=== PATIENT | male | born 1945 | race Caucasian/White ===

== ENCOUNTER 2016-12-05 11:55 | Day surgery (SDC) | payer MEDICARE, BC ==
[~2016-12-05 11:55] MED LIST: Acetaminophen TAB* 325 MG PO PRN; Buffered Lidocaine 0.9% SYRIN* 5 ML/SYR SYRINGE INTRADERM ONE
[2016-12-05] MEDS ORDERED: Midazolam* 1 MG/ML 2 ML VIAL (2 MG) ONE (14:23)
--- NOTE | 2016-12-05 16:08 | OP ---
DATE OF OPERATION: 12/05/2016 - [facility] DATE OF : 1945. SURGEON: Sedrick Perkins M.D. PREOPERATIVE DIAGNOSIS: Cataract right eye. POSTOPERATIVE DIAGNOSIS: Cataract right eye. OPERATIVE PROCEDURE: Phacoemulsification right eye with IOL. DESCRIPTION OF PROCEDURE: The patient was brought to the operating room after being given 1/2% Alcaine with epinephrine drops in the preoperative area. The eye was prepped and draped in the usual sterile fashion. Sterile drape and eyelid speculum were placed. Again, topical 1/2% Alcaine with epinephrine was given. A paracentesis incision was made at the 9 o'clock position with the No.75 blade. Clear cornea incision 2.2 x 2.2-mm was created at the 12 o'clock position starting at the anterior limbus using the 2.2-mm keratome. The anterior chamber was irrigated with 0.4 mL of 1% non-preservative intracameral lidocaine and filled with DisCoVisc. A capsulorrhexis was completed using the cystotome and the Utrata forceps. Hydrodissection was performed with balanced salt solution. The lens nucleus was removed with the Phacoemulsification handpiece without incident. Cortex was removed with the irrigation-aspiration handpiece. The capsular bag was re-inflated using DisCoVisc and an [id number] 16 implant was inserted with the shooter, oriented to the 120 degree meridian. Horizontal reference sanchez made with the patient in a seated position in the preoperative area. The irrigation-aspiration handpiece was used to remove all residual DisCoVisc. The eye was refilled with balanced salt solution and the wound checked and found to be watertight. Topical Maxitrol drops were given. [id number]/[facility] #: [id number] [facility]ENTER[facility]al[facility]
[2016-12-05 16:42] VITALS: BP 143/61
[2016-12-05] MEDS ORDERED: Ketorolac 0.5% OPHTH (NF) 0.5 % 5 ML BTL ONE (17:14)
[2016-12-05] MEDS ORDERED: Proparacaine 0.5% OPHTH.SOL* 15 ML BTL ONE (17:15)
[2016-12-05] MEDS ORDERED: Povidone Iodine 5% OPTH* 30 ML BTL ONE (17:15)
[2016-12-05] MEDS ORDERED: Lidocaine 1% MPF* 2 ML VIAL ONE (17:15)
[2016-12-05] MEDS ORDERED: Neomycin/Polymy/Dex OPTH.SUSP* MAXITROL 0.1% 5 ML ONE (17:15)
[2016-12-05] MEDS ORDERED: acetaZOLAMIDE TAB* 250 MG ONE (17:15)
[2016-12-05] MEDS ORDERED: Cyclopentolate 1% OPTH.SOL* 2 ML BTL ONE (17:15)
[2016-12-05] MEDS ORDERED: Phenylephrine 2.5% OPTH.SOL* 2 ML BTL ONE (17:15)
== END 2016-12-05 16:24 | disposition home or self-care (01) ==
LOC: OREAST 11:55
PROVIDERS: ATTEND Specialist
DX: H25.811 Combined forms of age-related cataract, right eye (principal); E11.3293 Type 2 diabetes mellitus with mild nonproliferative diabetic retinopathy without macular edema, bilateral; H04.123 Dry eye syndrome of bilateral lacrimal glands; I10 Essential (primary) hypertension; Z87.891 Personal history of nicotine dependence; Z79.84 Long term (current) use of oral hypoglycemic drugs; Z79.4 Long term (current) use of insulin
CPT/HCPCS: 93005; A9270-GY; J2250; V2787

== ENCOUNTER 2016-12-12 06:51 | Day surgery (SDC) | payer MEDICARE, BC ==
[2016-12-12] MEDS ORDERED: Lidocaine 1% MPF* 2 ML VIAL ONE (08:00)
[2016-12-12] MEDS ORDERED: acetaZOLAMIDE TAB* 250 MG ONE (08:00)
[2016-12-12] MEDS ORDERED: Cyclopentolate 1% OPTH.SOL* 2 ML BTL ONE (08:00)
[2016-12-12] MEDS ORDERED: Neomycin/Polymy/Dex OPTH.SUSP* MAXITROL 0.1% 5 ML ONE (08:00)
[2016-12-12] MEDS ORDERED: Proparacaine 0.5% OPHTH.SOL* 15 ML BTL ONE (08:00)
[2016-12-12] MEDS ORDERED: Phenylephrine 2.5% OPTH.SOL* 2 ML BTL ONE (08:00)
[2016-12-12] MEDS ORDERED: Buffered Lidocaine 0.9% SYRIN* 5 ML/SYR SYRINGE ONE (08:00)
[2016-12-12] MEDS ORDERED: Povidone Iodine 5% OPTH* 30 ML BTL ONE (08:00)
[2016-12-12] MEDS ORDERED: Ketorolac 0.5% OPHTH (NF) 0.5 % 5 ML BTL ONE (08:01)
[2016-12-12] MEDS ORDERED: Midazolam* 1 MG/ML 2 ML VIAL (2 MG) ONE (08:07)
[2016-12-12 09:17] VITALS: BP 128/45
--- NOTE | 2016-12-12 09:22 | OP ---
DATE OF OPERATION: 12/12/2016 - [facility] DATE OF : 1945. SURGEON: Sedrick Perkins M.D. PREOPERATIVE DIAGNOSIS: Cataract left eye. POSTOPERATIVE DIAGNOSIS: Cataract left eye. OPERATIVE PROCEDURE: Phacoemulsification left eye with IOL. DESCRIPTION OF PROCEDURE: The patient was brought to the operating room after being given 1/2% Alcaine with epinephrine drops in the preoperative area. The eye was prepped and draped in the usual sterile fashion. Sterile drape and eyelid speculum were placed. Again, topical 1/2% Alcaine with epinephrine was given. A paracentesis incision was made at the 3 o'clock position with the No.75 blade. Clear cornea incision 2.2 x 2.2-mm was created at the 6 o'clock position starting at the anterior limbus using the 2.2-mm keratome. The anterior chamber was irrigated with 0.4 mL of 1% non-preservative intracameral lidocaine and filled with DisCoVisc. A capsulorrhexis was completed using the cystotome and the Utrata forceps. Hydrodissection was performed with balanced salt solution. The lens nucleus was removed with the Phacoemulsification handpiece without incident. Cortex was removed with the irrigation-aspiration handpiece. The capsular bag was re-inflated using DisCoVisc and an [id number] 15.5 implant was inserted with the shooter, oriented to the 30 degree meridian. Horizontal reference sanchez made with the patient in the seated position in the preoperative area. The irrigation-aspiration handpiece was used to remove all residual DisCoVisc. The eye was refilled with balanced salt solution and the wound checked and found to be watertight. Topical Maxitrol drops were given. [id number]/[facility] #: [id number] [facility]
== END 2016-12-12 09:25 | disposition home or self-care (01) ==
LOC: OREAST 06:51
PROVIDERS: ATTEND Specialist
DX: H25.812 Combined forms of age-related cataract, left eye (principal); E11.3293 Type 2 diabetes mellitus with mild nonproliferative diabetic retinopathy without macular edema, bilateral; H04.123 Dry eye syndrome of bilateral lacrimal glands; I10 Essential (primary) hypertension; I49.8 Other specified cardiac arrhythmias
CPT/HCPCS: A9270-GY; J2250

== ENCOUNTER 2018-07-02 11:59 | Inpatient (IN) | payer MEDICARE, BC ==
--- NOTE | 2018-07-01 13:23 | HP ---
AMENDED REPORT NOW INCLUDES DESIGNATED COSIGNER CC: Dr. Robin Souza; Dr. Enoc Munson * DATE OF ADMISSION: 07/02/2018. This patient is scheduled for AA admission by Dr. Mak. DATE OF PREOPERATIVE HISTORY AND PHYSICAL EXAMINATION: Sunday, July 01, 2018. ATTENDING SURGEON: Dr. Sergo Mak * (dictated by Fe Cespedes NP). CHIEF COMPLAINT: Colon cancer. HISTORY OF PRESENT ILLNESS: The patient is a 72-year-old male referred to Dr. Mak for newly diagnosed metastatic colon carcinoma. The patient had left lower quadrant abdominal pain and change in bowel habits with pencil-thin stools and constipation. A CAT scan of the abdomen and pelvis revealed an abnormal sigmoid colon suggestive of a mass. Image guided liver biopsy showed findings consistent with metastatic colon carcinoma. The patient met with Dr. Munson and he was referred to Dr. Nunez for flexible sigmoidoscopy on 06/20. The sigmoidoscopy revealed a circumferential mass in the descending colon. Dr. Primo Mcmanus was unable to advance the scope past the mass and she advised that the mass will begin to cause increasing obstructive symptoms. A tattoo was placed several folds distal to the mass for localization. The patient has a poor appetite and has lost approximately 40 to 50 pounds. He is feeling fatigued. He denies any fever or chills and denies any vomiting. He is trying to drink Boost three times a day. Dr. Mak examined the patient and discussed the findings with him, and has recommended laparotomy with sigmoid colectomy, possible colostomy and power port placement at the same setting. Dr. Mak discussed the nature of the surgical procedure, the rationale for the procedure, the relevants risks and benefits, and today I have reviewed the typical hospitalization and postoperative recovery. The patient will take a bowel cleansing prep today consisting of CoLyte, Neomycin, and Metronidazole and a clear liquid diet. The patient has had a chance to ask questions and stated that he understands the information and is satisfied with the answers given to his questions. He will sign surgical consent on the day of surgery. His daughter accompanied him to the visit today and is very supportive. PAST MEDICAL HISTORY: Hypertension and type 2 diabetes mellitus. He is followed for primary care by Dr. Robin Souza. PAST SURGICAL HISTORY: Right rotator cuff, right carpal tunnel release, and cataract extractions. MEDICATIONS: 1. Atorvastatin 40 mg p.o. daily which he has not been taking recently. 2. Amlodipine 5 mg p.o. daily and he will take a dose tonight after he is finished with his bowel prep. 3. Victoza 18 mg subcutaneously daily. 4. Glipizide 10 mg p.o. b.i.d. 5. Ferrous Sulfate 325 mg p.o. daily. 6. Metformin 1,000 mg p.o. b.i.d. 7. Fluoxetine 40 mg p.o. daily and he will take a dose tonight after he completes his bowel prep. 8. Aspirin 81 mg p.o. daily which he has not been taking routinely. 9. Tramadol 50 mg one to two tablets every 6 hours as needed for pain. ALLERGIES: BYETTA CAUSED RASH. FAMILY HISTORY: Father had a history of heart disease. Mother had a history of diabetes, heart disease, and high blood pressure. No known anesthesia complications, bleeding tendencies, or clotting disorders. SOCIAL HISTORY: He is . His daughter accompanied him to the visit today. He is a nonsmoker and denies the use of alcohol or other substances. REVIEW OF SYSTEMS: Constitutional: No fevers or chills. He does feel fatigued and has experienced significant weight loss. Endocrine: Type 2 diabetes, fingerstick blood sugar at home typically is in the 150 to 160 range, but he reports that yesterday he was not feeling well and he thinks his fingerstick was around 300, but he also reported that he was not consistently taking his Victoza and Glipizide. Hematologic: No easy bruising or bleeding. No history of blood transfusions. Respiratory: No chronic cough. Mild dyspnea on exertion related to fatigue. Cardiovascular: No anginal chest pain or palpitations. He does have an irregular heart rhythm and EKG done 06/18/2018 revealed PVC's and the EKG as read by Dr. Cronin stated that it was unchanged from November 2016. He denies any history of myocardial infarction. Gastrointestinal: As described in history of present illness. Genitourinary: No dysuria or hematuria. Musculoskeletal: No joint or back pain. Integumentary: No chronic rashes, ulcerations or skin changes. Neurologic: No headache or blurred vision. No areas of focal weakness or numbness. General : No previous anesthesia complications, no history of deep vein thrombosis or pulmonary embolism. PHYSICAL EXAMINATION GENERAL: The patient is a 72-year-old male, well-developed, ill-appearing, in no acute distress. VITAL SIGNS: Height 69 inches, weight 188 pounds, body mass index 27.8. Blood pressure 122/58, pulse 60 and irregular, respiratory rate 18, temperature 97 tympanic. SKIN: Warm, dry, intact, pale. HEENT: Benign. NECK: Supple. No cervical lymphadenopathy. BACK: No CVA tenderness. LUNGS: Breath sounds bilaterally clear and equal. HEART: Irregular rhythm. No murmurs or rubs. ABDOMEN: Active bowel sounds. Soft and nondistended, tender. Palpable mass left mid abdomen. No organomegaly. No hernias. EXTREMITIES: Warm without edema or skin ulcerations. GENITALIA: Exam deferred. RECTAL: Exam deferred. NEUROLOGIC: Alert and oriented times three. Steady gait. IMPRESSION: Malignant neoplasm of the sigmoid colon with liver metastasis. PLAN: AA admission to Dr. Mak' service on Monday, July 02, 2018 for laparotomy, sigmoid resection, possible colostomy, power port placement. The patient was instructed in a preoperative bowel cleansing prep to be taken today consisting of CoLyte laxative, clear liquid diet, Neomycin, and Metronidazole. He will have a repeat basic chem profile at preadmission today to check his glucose. INESSA CESPEDES NP [id number]/[facility] #: [id number] SANJAY
[~2018-07-02 11:59] MED LIST changes: -Acetaminophen TAB* 325 MG PO PRN; -Buffered Lidocaine 0.9% SYRIN* 5 ML/SYR SYRINGE INTRADERM ONE; +Buffered Lidocaine 1% SYRIN* 1 ML/SYRINGE INTRADERM ONE; +Ertapenem* 1 GM in NS 0.9% 50 ML* 50 ML IVPB ONE; +Famotidine IV* 10 MG/ML 2 ML (20 mg) IV ONE; +Lactated Ringers 1000 ML Bag* 1,000 ML IV SCH; +Midazolam* 1 MG/ML 5 ML VIAL (5 MG) ONE; +fentaNYL* 50 MCG/ML 2 ML VIAL (100 MCG VIAL) ONE
[2018-07-02] MEDS ORDERED: Buffered Lidocaine 1% SYRIN* 1 ML/SYRINGE INTRADERM ONE (12:36)
[2018-07-02] MEDS ORDERED: Famotidine IV* 10 MG/ML 2 ML (20 mg) ONE (12:36)
[2018-07-02] MEDS ORDERED: Heparin VIAL(*) 5000 UNITS/ML VIAL (FIVE THOUSAND) ONE (12:58)
[2018-07-02 13:32] LABS: INR 1.16 (0.77-1.02)
[2018-07-02] MEDS ORDERED: Lidocaine 1% INJ* 10 MG/ML 30 ML SDV ONE (13:33)
[2018-07-02] MEDS ORDERED: Bupivacaine 0.25% W/EPI* 10 ML SDV ONE (13:33)
[2018-07-02] MEDS ORDERED: Rocuronium* 10 MG/ML VIAL ONE ×2 (14:19→16:50)
[2018-07-02] MEDS ORDERED: fentaNYL* 50 MCG/ML 2 ML VIAL (100 MCG VIAL) ONE (17:25)
[2018-07-02] MEDS ORDERED: Acetaminophen IV 1GM/100ML * 1,000 MG/100 ML VIAL IVPB ONE (17:31)
[2018-07-02] MEDS ORDERED: DiMENhydriNATE IV* 50 MG/ML VIAL IV PUSH PRN (17:31)
[2018-07-02] MEDS ORDERED: Naloxone* 0.4 MG/ML 1 ML VIAL IV PRN (17:31)
[2018-07-02] MEDS ORDERED: Ondansetron INJ* 2 MG/ML VIAL IV PRN ×2 (17:35→18:29)
[2018-07-02] MEDS ORDERED: Dexamethasone IV* 4 MG/ML 1 ML (4 MG) ONE (17:45)
[2018-07-02] MEDS ORDERED: DiMENhydriNATE IV* 50 MG/ML VIAL ONE (17:45)
[2018-07-02] MEDS ORDERED: Succinylcholine* 20 MG/ML 10 ML VIAL ONE (17:45)
[2018-07-02] MEDS ORDERED: Propofol* 10 MG/ML 20 ML BTL ONE (17:45)
[2018-07-02] MEDS ORDERED: EPHEDrine (Pressors)* 50 MG/ML VIAL ONE ×2 (17:45)
[2018-07-02] MEDS ORDERED: Glycopyrrolate IV* 0.2 MG/ML 1 ML VIAL ONE (17:45)
[2018-07-02] MEDS ORDERED: Phenylephrine IV* 40 MCG/ML 10 ML SYRINGE ONE (17:45)
[2018-07-02] MEDS ORDERED: Neostigmine Methylsulfate* 1 MG/ML 10 ML VIAL (1 mg/ml) ONE (17:45)
[2018-07-02] MEDS ORDERED: Ondansetron INJ* 2 MG/ML VIAL ONE (17:45)
[2018-07-02] MEDS ORDERED: Ropivacaine (OR use only) 2 MG/ML 10 ML ONE (17:47)
[2018-07-02] MEDS: Ropivacaine* 300 MG in NS 0.9% 250 ML* 240 ML EPIDURAL SCH ×2 (18:30→19:19)
[2018-07-02] MEDS ORDERED: Insulin LISPRO* 1 UNITS UNIT SUBCUT ONE (18:37)
[2018-07-02] MEDS ORDERED: Dextrose 50% Syringe 50 ML* 25 GM/50 ML SYRINGE IV PUSH PRN (18:42)
[2018-07-02] MEDS ORDERED: Acetaminophen IV 1GM/100ML * 100 ML ONE (18:48)
--- NOTE | 2018-07-02 18:56 | BRIEFOPN ---
Brief Operative Note - Surgery Procedures: PREOP DX: COLON CARCINOMA WITH LIVER METASTASIS POSTOP DX: SAME; RETROPERITONEAL ABSCESS PROC: POWERPORT PLACEMENT; EXPL LAPAROTOMY; SMALL BOWEL RESECTION; PARTIAL COLON RESECTION; COLOSTOMY; DRAINAGE OF ABSCESS SURG: MECENAS ASSIST: DEEPAK ANES: GET; GIRISHUFSANIYA EBL: 100 ML IVF: 2.8 L CRYST U/O: 200ML SPEC: 1) ABSCESS FLUID FOR C&S 2) PORTION OF SMALL BOWEL 3) PORTION OF SIGMOID COLON DRAIN: NONE COMPL: NONE COND: STABLE; EXTUBATED; TO RR.
[2018-07-02] MEDS ORDERED: HYDROmorphone INJ1* 1 MG/ML SYRINGE ONE (19:02)
[2018-07-02] MEDS: HYDROmorphone INJ1* 1 MG/ML SYRINGE IV PRN ×2 (19:04→19:24)
[2018-07-02] MEDS: Acetaminophen TAB* 325 MG PO SCH ×2 (20:45→23:30)
[2018-07-02] MEDS: Lactated Ringers 1000 ML Bag* 1,000 ML IV SCH (21:00)
[2018-07-02] MEDS: Insulin LISPRO* 1 UNITS UNIT SUBCUT SCH (21:10)
--- NOTE | 2018-07-02 21:57 | OP ---
CC: Enoc Munson MD; Robin Souza MD; Reshma Nunez MD * DATE OF OPERATION: 07/02/18 - ROOM #342 DATE OF : 45 SURGEON: Dr. Mak. SUPERVISOR WHIPPED TOPPING: Dr. Cheng. PRE-OP DIAGNOSIS: Colon carcinoma with liver metastases. POST-OP DIAGNOSES: 1. Colon carcinoma with liver metastases. 2. Retroperitoneal/mesenteric abscess. OPERATIVE PROCEDURES: PowerPort placement via left subclavian approach, exploratory laparotomy, partial small bowel resection, partial sigmoid resection , drainage of abscess and colostomy. ESTIMATED BLOOD LOSS: 100 mL. IV FLUIDS: 2.8 L of crystalloid. URINE OUTPUT: 200 mL. SPECIMENS: 1. Abscess fluid for culture and sensitivity. 2. Portion of small bowel. 3. Portion of colon. DRAINS: None. COMPLICATIONS: None. COUNTS: The instrument, needle, and sponge counts were correct. DESCRIPTION OF PROCEDURE: The patient was brought to the operating room and placed on the table. He was administered an epidural by the anesthesiologist and positioned supine. The patient was positioned and padded appropriately for a left subclavian port placement. After he received appropriate intravenous antibiotics and after being prepped and draped, time-out was performed. The left subclavian access was obtained and a guidewire was passed under fluoroscopic guidance into the superior vena cava. Pocket was created in the left upper chest and then an 8-Greek PowerPort was back tunneled to the pocket from the guidewire insertion site. The peel-away sheath and dilator were advanced over the guidewire into the superior vena cava and dilator and guidewire were removed, and then the catheter was advanced into the junction of the atrium and superior vena cava confirming this position under fluoroscopy. The catheter was cut to an appropriate length and connected to the port, which was accessed, it luisa and flushed easily. The port was sutured into the pocket with 2-0 Prolene. The pocket was then closed in two layers with 3-0 Vicryl and 4-0 Monocryl. Counter incision was closed with 3-0 Vicryl and Steri-Strips were applied to this site with Tegaderm dressing. The patient was then positioned in modified lithotomy and left arm tucked at the side. Davis catheter was placed and rectal irrigation was performed. The abdomen was then prepped and draped in the usual sterile fashion. Time-out was repeated. Midline laparotomy was undertaken and after entering the peritoneal cavity, exploration was performed. Small bowel was noted to be adherent to the large mass in the proximal sigmoid colon. This appeared to be also adherent to the pelvic side wall. Exploration revealed the liver metastases in both right and left lobes. Remaining portions of small bowel, stomach and colon were all unremarkable. The parietal peritoneum did not reveal any studding or carcinomatosis. The small bowel involved with the mass, however, was concerning for its potential to create small bowel obstruction and knowing that the large bowel was near obstruction, it was felt the small bowel resection would be performed. The mass was mobile from the retroperitoneum and during manipulation of the mass, an area of pus was identified leaking from the area of the retroperitoneum where the mesentery was adherent and therefore this area was opened wider to allow drainage of the abscess. Cultures were sent and then irrigation was performed. Ultimately, it was decided it would be best to resect the mass and create a colostomy as optimal surgical palliation for this patient. First, the small bowel was mobilized off the mass and this was resected. The proximal and distal margins of resection were in grossly normal bowel. Wedge of mesentry was divided with LigaSure and the continuity of the bowel was restored with the use of a [id number] functional end-to-end anastomosis with an 80 mm RAULITO stapler. The common enterotomy was closed with TA -60 blue stapler and the anastomosis was oversewn with 3-0 silks, which were also used to close the mesenteric defect. Next the colon mass was addressed. The colon proximal to the mass was adherent to the pelvic side wall and this was mobilized by freeing it along the white line of Toldt and then the colon was divided in grossly normal bowel, but proximal to the mass. There was a majority of the sigmoid colon distal to the mass and this was all of normal in appearance. A window was then created in the mesentery here and the bowel was again divided with the RAULITO stapler. Then, the mesentery was divided using the LigaSure, freeing the mass in its entirety and it was submitted to Pathology. The area where the abscess had been was inspected. There appeared to be tumor within this site. This was into the mesentry of the sigmoid colon and this extended along the left pelvic side wall. The Ureter was identified proximally and appeared to be free from injury , coursing behind the area of the mass that was into the sigmoid mesentery. The proximal colon needed to be mobilized in order to create the colostomy and this was done using combination of LigaSure, blunt dissection, and cautery. The splenic flexure was entirely taken down. Having adequately mobilized this portion of the colon, an aperture for the colostomy was created in the left lower quadrant. This had been marked prior to the procedure. The colon was brought through the rectus muscle and then abdomen was copiously lavaged until clear. The omentum was drawn beneath the wound, which was then closed with running #1 PDS suture. Subcutaneous tissues were irrigated. Skin was closed with yamile. Coverlet dressing was applied. The colostomy was then matured using 4-0 Vicryl suture. It appeared to be pink and viable and the digital exam confirmed its patency. An ostomy appliance was applied. The patient subsequently was extubated uneventfully and transferred to the recovery room in stable condition. [id number]/[facility] #: [id number] SANJAY
[2018-07-02] MEDS ORDERED: Insulin GLARGINE(*) 1 UNITS UNIT SUBCUT SCH (22:00)
[2018-07-02] MEDS: Heparin VIAL(*) 5000 UNITS/ML VIAL (FIVE THOUSAND) SUBCUT SCH (22:08)
[2018-07-03] MEDS: Lactated Ringers 1000 ML Bag* 1,000 ML IV SCH (04:25)
[2018-07-03] MEDS: Acetaminophen TAB* 325 MG PO SCH ×3 (05:47→18:05)
[2018-07-03] MEDS: Heparin VIAL(*) 5000 UNITS/ML VIAL (FIVE THOUSAND) SUBCUT SCH ×3 (05:48→22:13)
[2018-07-03 07:43] LABS: EGFR African American 69.3 (>60); EGFR Non-African American 57.3 (>60); Potassium 3.9 mmol/L (3.5-5.0)
[2018-07-03 07:46] LABS: ABS Basophils 0 10^3/ul (0-0.2); ABS Eosinophils 0 10^3/ul (0-0.6); ABS Monocytes 0.5 10^3/ul (0-0.8); ABS Neutrophils 10.5 10^3/ul (1.5-7.7); ABS Nucleated RBC 0 10^3/ul; Eosinophil % 0 %; Hematocrit 25 % (42-52); Mean Corpuscular HGB Conc 32 g/dl (31-36); Mean Corpuscular Hemoglobin 24 pg (27-31); Mean Corpuscular Volume 75 fL (80-94); Mean Platelet Volume 9.2 fL (7.4-10.4); Nucleated Red Blood Cells % 0; Platelet Count 210 10^3/ul (150-450); Red Blood Count 3.29 10^6/ul (4.00-5.40); Red Cell Distribution Width 16 % (10.5-15); White Blood Count 11.9 10^3/ul (3.5-10.8)
--- NOTE | 2018-07-03 08:32 | PN ---
Subjective - Subjective Reason for Note: Consultation Note History: Endocrinology consultation: Primary care and endocrine patient at my medical office - well known to me. 1 day post-op from partial colectomy, partial small bowel resection, drainage of abscess, fashioning of colostomy and PowerPort placement for colon cancer. He feels better now after the surgery than before - though he has some abdominal pain at the surgical sites. He has anorexia, but no nausea or vomiting. He has no chest pain, shortness of breath or palpitations. He has no edema. He is hyperglycemic - though not higher than he is as an outpatient. 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) Z93.3 Metastatic colon cancer to liver (Acute) C18.9, C78.7 Type 2 diabetes mellitus with hyperglycemia (Acute) E11.65 Diabetic nephropathy (Chronic) Diabetic peripheral neuropathy (Chronic) E11.42 Essential hypertension (Chronic) I10 Hyperlipidemia (Chronic) E78.5 Non-proliferative diabetic retinopathy (Chronic) E11.3299 Stage 3 chronic kidney disease (Chronic) N18.3 Current Medications: Current Medications Acetaminophen (Tylenol Tab*) 650 mg PO Q6H [facility] Stop: 07/03/18 18:00 Last Admin: 07/03/18 05:47 Dose: 650 mg Dextrose (D50w Syringe 50 Ml*) 12.5 gm IV PUSH .FOR FS < 60 - SS PRN PRN Reason: FS < 60 Heparin Sodium (Porcine) (Heparin Vial(*)) 5,000 units SUBCUT Q8HR [facility] Last Admin: 07/03/18 05:48 Dose: 5,000 units Lactated Ringer's (Lactated Ringers 500 Ml Bag*) 500 mls @ 2,000 mls/hr IV ONCE PRN PRN Reason: FOR SBP < 90 Ropivacaine 300 mg/ Sodium (Chloride) 300 mls @ 0 mls/hr EPIDURAL PER RATE [facility] ; Protocol Last Admin: 07/02/18 19:19 Dose: 8 mls/hr Lactated Ringer's (Lactated Ringers 1000 Ml Bag*) 1,000 mls @ 150 mls/hr IV PER RATE [facility] Last Admin: 07/03/18 04:25 Dose: 150 mls/hr Insulin Glargine (Lantus(*)) 20 units SUBCUT Q24H [facility] Last Admin: 07/02/18 22:07 Dose: 20 units Insulin Human Lispro (Humalog*) 0 units SUBCUT [facility]; Protocol Last Admin: 07/02/18 21:10 Dose: 8 units Ondansetron HCl (Zofran Inj*) 4 mg IV Q6H PRN PRN Reason: NAUSEA/VOMITING Ondansetron HCl (Zofran Inj*) 4 mg IV Q4H PRN PRN Reason: NAUSEA/VOMITING - Review of Systems Pulmonary: Negative: Cough, Sputum, Shortness of Breath Gastroenterology: Positive: Abdominal Pain, Anorexia Negative: Nausea Genital - Urinary: Positive: Other - Davis in situ Home Medications: Home Medications Medication Instructions Recorded Confirmed Type Amlodipine Besylate [Norvasc 5 mg 5 mg PO QAM 11/29/16 07/02/18 History tab] Aspirin [Aspirin 81 MG TAB] 81 mg PO QAM 11/29/16 07/02/18 History Atorvastatin* [Lipitor*] 40 mg PO QAM 11/29/16 07/02/18 History FLUoxetine CAP* [PROzac CAP*] 40 mg PO QAM 11/29/16 07/02/18 History Ferrous Sulfate TAB* 325 mg PO QAM 11/29/16 07/02/18 History metFORMIN* [Glucophage 1000 MG TAB 1,000 mg PO BID 11/29/16 07/02/18 History *] Acetaminophen [Tylenol] 650 mg PO Q6HR PRN 06/06/18 07/01/18 History Liraglutide [Victoza 3-Trevin] 1.8 mg SUBCUT BEDTIME 06/06/18 07/01/18 History glipiZIDE [Glipizide] 10 mg PO BID 06/06/18 07/02/18 History Ondansetron HCl [Zofran 4 MG TAB] 4 mg PO Q4H PRN 07/01/18 07/02/18 History Oseltamivir CAP* [Tamiflu CAP*] 75 mg PO QAM 07/01/18 07/02/18 History Prochlorperazine TAB* [Compazine 10 mg PO Q6H PRN 07/01/18 07/02/18 History Tab*] traMADol TAB* [Ultram*] 50 mg PO Q6HR PRN 07/01/18 07/02/18 History Flagyl 07/02/18 History Neomycin TAB* 07/02/18 History Allergies: Allergies Allergy/AdvReac Type Severity Reaction Status Date / Time exenatide [[place]] Allergy Intermediate Rash Verified 07/02/18 12:24 Objective - Vital Signs Vital Signs: Vital Signs 07/02/18 07/02/18 07/02/18 12:36 18:10 18:12 Temperature 96.8 F 96.8 F Pulse Rate 59 68 Respiratory 12 2 Rate Blood Pressure 122/61 154/46 (mmHg) O2 Sat by Pulse 100 99 Oximetry 07/02/18 07/02/18 07/02/18 18:15 18:17 18:21 Temperature Pulse Rate 65 Respiratory 4 26 11 Rate Blood Pressure 159/63 159/59 146/55 (mmHg) O2 Sat by Pulse 100 Oximetry 07/02/18 07/02/18 07/02/18 18:26 18:32 18:40 Temperature Pulse Rate 43 83 54 Respiratory 14 20 2 Rate Blood Pressure 149/58 130/35 102/37 (mmHg) O2 Sat by Pulse 99 99 100 Oximetry 07/02/18 07/02/18 07/02/18 18:45 18:46 18:51 Temperature Pulse Rate 53 46 Respiratory 18 9 Rate Blood Pressure 100/49 105/41 (mmHg) O2 Sat by Pulse 100 100 Oximetry 07/02/18 07/02/18 07/02/18 18:52 19:00 19:01 Temperature Pulse Rate 54 Respiratory 20 Rate Blood Pressure 105/47 (mmHg) O2 Sat by Pulse 100 100 Oximetry 07/02/18 07/02/18 07/02/18 19:04 19:11 19:16 Temperature 96.8 F Pulse Rate 80 76 Respiratory 16 17 19 Rate Blood Pressure 105/47 125/53 (mmHg) O2 Sat by Pulse 99 Oximetry 07/02/18 07/02/18 07/02/18 19:24 19:30 19:31 Temperature 96.8 F Pulse Rate 72 Respiratory 14 20 Rate Blood Pressure 125/44 (mmHg) O2 Sat by Pulse 98 Oximetry 07/02/18 07/02/18 07/02/18 19:45 20:00 20:01 Temperature Pulse Rate 69 80 86 Respiratory 17 17 Rate Blood Pressure 107/63 121/47 (mmHg) O2 Sat by Pulse 98 97 98 Oximetry 07/02/18 07/02/18 07/02/18 20:16 20:30 20:51 Temperature 97.3 F Pulse Rate 75 88 Respiratory 16 18 Rate Blood Pressure 118/55 103/35 (mmHg) O2 Sat by Pulse 98 100 Oximetry 07/02/18 07/02/18 07/02/18 21:00 21:10 21:34 Temperature 97.3 F 97.0 F Pulse Rate 88 42 Respiratory 16 18 16 Rate Blood Pressure 103/35 106/35 (mmHg) O2 Sat by Pulse 100 Oximetry 07/02/18 07/02/18 07/03/18 21:35 22:38 00:32 Temperature 97.2 F Pulse Rate 60 86 Respiratory 17 Rate Blood Pressure 100/33 (mmHg) O2 Sat by Pulse 100 99 Oximetry 07/03/18 07/03/18 07/03/18 00:38 00:40 02:36 Temperature 97.6 F 96.9 F Pulse Rate 70 63 Respiratory 18 16 Rate Blood Pressure 107/42 113/45 (mmHg) O2 Sat by Pulse 100 100 Oximetry 07/03/18 07/03/18 07/03/18 07:29 08:00 08:05 Temperature 97.3 F Pulse Rate 79 Respiratory 18 16 Rate Blood Pressure 112/35 (mmHg) O2 Sat by Pulse 100 100 Oximetry - Intake and Output Intake and Output: Intake & Output 06/30/18 07/01/18 07/02/18 07/03/18 11:59 11:59 11:59 11:59 Intake Total 3950 Output Total 750 Balance 3200 Weight 188 lb 186 lb Intake: IV Fluids 3850 ERTAPENEM 1GM 50 LR 1000 lr 2800 Oral 100 Output: Davis 650 Estimated Blood Loss 100 ADLs: Meal Record Start: 07/02/18 19: 46 Freq: Status: Active Protocol: Created 07/02/18 19:46 System (Rec: 07/02/18 19:46 System [id number]) Intake and Output Start: 07/02/18 19: 46 Freq: DAILY@0600,1400,2200 Status: Active Protocol: Created 07/02/18 19:46 System (Rec: 07/02/18 19:46 System [id number]) Document 07/02/18 22:00 [id number] (Rec: 07/02/18 22:40 [id number]) Document 07/03/18 05:46 [id number] (Rec: 07/03/18 05:47 [id number]) - Physical Exam General Physical Exam Comment: He is comfortable, warm and well perfused, hydrated and hemodynamically stable. He is conversational and insightful General: No Cyanosis, No Anemia, No Jaundice, No Clubbing Lungs and Chest: Yes: Chest Expansion Full, Chest Expansion Symetrica, Percussion Note Resonant, Vessicular Breath Sounds. No: Crackles, Wheezes, Respiratory Distress Heart Rate and Rhythm: Irregular JVP: Not Elevated Additional Cardiovascular: Yes: Normal Heart Sounds. No: Heart Murmur, Pedal Edema Abdominal Exam: Yes: Soft, Abdominal Tenderness. No: Distention, Bowel Sounds Present - Extremities Cranial Nerves II-XII Intact: Yes - Neuro Orientation: A/O x3 Speech: Normal Results - Results Lab Results: Laboratory Results - last 24 hr 07/02/18 07/02/18 07/02/18 12:39 12:59 12:59 WBC RBC Hgb Hct MCV MCH MCHC RDW Plt Count MPV Neut % (Auto) Lymph % (Auto) [place] % (Auto) Eos % (Auto) Baso % (Auto) Absolute Neuts (auto) Absolute Lymphs (auto) Absolute Monos (auto) Absolute Eos (auto) Absolute Basos (auto) Absolute Nucleated RBC Nucleated RBC % INR (Anticoag Therapy) 1.16 H Sodium Potassium Chloride Carbon Dioxide Anion Gap BUN Creatinine Est GFR ( Amer) Est GFR (Non-Af Amer) BUN/Creatinine Ratio Glucose POC Glucose (mg/dL) 281 H Calcium Blood Type A Positive Antibody Screen Negative 07/02/18 07/03/18 07/03/18 21:02 07:05 07:05 WBC 11.9 H RBC 3.29 L Hgb 8.0 L Hct 25 L MCV 75 L MCH 24 L MCHC 32 RDW 16 H Plt Count 210 MPV 9.2 Neut % (Auto) 88.0 Lymph % (Auto) 8.0 [place] % (Auto) 3.8 Eos % (Auto) 0 Baso % (Auto) 0.2 Absolute Neuts (auto) 10.5 H Absolute Lymphs (auto) 1.0 Absolute Monos (auto) 0.5 Absolute Eos (auto) 0 Absolute Basos (auto) 0 Absolute Nucleated RBC 0 Nucleated RBC % 0 INR (Anticoag Therapy) Sodium 135 Potassium 3.9 Chloride 104 Carbon Dioxide 21 L Anion Gap 10 BUN 31 H Creatinine 1.24 H Est GFR ( Amer) 69.3 Est GFR (Non-Af Amer) 57.3 BUN/Creatinine Ratio 25.0 H Glucose 249 H POC Glucose (mg/dL) 316 H Calcium 8.0 L Blood Type Antibody Screen Assessment - Problem List Assessment: Patient Problems Anemia (Acute) Cardiac arrhythmia (Acute) Colon cancer (Acute) Colostomy in place (Acute) Metastatic colon cancer to liver (Acute) Type 2 diabetes mellitus with hyperglycemia (Acute) Diabetic nephropathy (Chronic) Diabetic peripheral neuropathy (Chronic) Essential hypertension (Chronic) Hyperlipidemia (Chronic) Non-proliferative diabetic retinopathy (Chronic) Stage 3 chronic kidney disease (Chronic) Plan: Colon cancer (Acute)/Colostomy in place (Acute) /Metastatic colon cancer to liver (Acute) He is day 1 post-operatively. He has an ileus - surgery will manage this. He is going to need stoma training. At present he is requiring IVF. Type 2 diabetes mellitus with hyperglycemia (Acute) I restarted him on Lantus insulin yesterday evening. He is receiving lispro coverage. I will optimize this. Anemia (Acute) Surgery will manage this - no acute need for a transfusion as he is hemodynamically stable Cardiac arrhythmia (Acute) He has multiple VEs. I will check an EKG in case he is now in atrial fibrillation. Secondary diagnoses: Diabetic nephropathy (Chronic) Diabetic peripheral neuropathy (Chronic) Essential hypertension (Chronic) - stable Hyperlipidemia (Chronic) Non-proliferative diabetic retinopathy (Chronic) Stage 3 chronic kidney disease (Chronic) I discussed the above with the patient. He understands that it will take a while for his GIT to recover from the surgery. He feels comfortable.
[2018-07-03] MEDS ORDERED: D5LR 1000 ML BAG* 1,000 ML IV SCH (09:00)
[2018-07-03] MEDS: Insulin LISPRO* 1 UNITS UNIT SUBCUT SCH ×4 (09:34→22:13)
[2018-07-03] MEDS: Insulin GLARGINE(*) 1 UNITS UNIT SUBCUT SCH ×2 (09:35→20:56)
--- NOTE | 2018-07-03 10:23 | PN ---
Progress Note - Progress Note Date of Service: 07/03/18 SOAP: Subjective: Reports good pain control; no N/V. Objective: Vital Signs Temp 97.3 F 07/03/18 07:29 Pulse 79 07/03/18 07:29 Resp 16 07/03/18 08:05 BP 112/35 07/03/18 07:29 Pulse Ox 100 07/03/18 08:05 Gen: NAD Abd: dressings c/d/i; ostomy +edema; no fct; soft and nontender. Intake & Output 07/02/18 07/03/18 07/03/18 18:59 06:59 18:59 Intake Total 2850 1100 675 Output Total 300 450 Balance 2550 650 675 Weight 186 lb Intake: IV Fluids 2850 1000 675 ERTAPENEM 1GM 50 LR 1000 675 lr 2800 Oral 100 Output: [place] 200 450 Estimated Blood Loss 100 Laboratory Results - last 24 hr 07/02/18 07/02/18 07/02/18 12:39 12:59 12:59 WBC RBC Hgb Hct MCV MCH MCHC RDW Plt Count MPV Neut % (Auto) Lymph % (Auto) [place] % (Auto) Eos % (Auto) Baso % (Auto) Absolute Neuts (auto) Absolute Lymphs (auto) Absolute Monos (auto) Absolute Eos (auto) Absolute Basos (auto) Absolute Nucleated RBC Nucleated RBC % INR (Anticoag Therapy) 1.16 H Sodium Potassium Chloride Carbon Dioxide Anion Gap BUN Creatinine Est GFR ( Amer) Est GFR (Non-Af Amer) BUN/Creatinine Ratio Glucose POC Glucose (mg/dL) 281 H Calcium Blood Type A Positive Antibody Screen Negative 07/02/18 07/03/18 07/03/18 21:02 07:05 07:05 WBC 11.9 H RBC 3.29 L Hgb 8.0 L Hct 25 L MCV 75 L MCH 24 L MCHC 32 RDW 16 H Plt Count 210 MPV 9.2 Neut % (Auto) 88.0 Lymph % (Auto) 8.0 [place] % (Auto) 3.8 Eos % (Auto) 0 Baso % (Auto) 0.2 Absolute Neuts (auto) 10.5 H Absolute Lymphs (auto) 1.0 Absolute Monos (auto) 0.5 Absolute Eos (auto) 0 Absolute Basos (auto) 0 Absolute Nucleated RBC 0 Nucleated RBC % 0 INR (Anticoag Therapy) Sodium 135 Potassium 3.9 Chloride 104 Carbon Dioxide 21 L Anion Gap 10 BUN 31 H Creatinine 1.24 H Est GFR ( Amer) 69.3 Est GFR (Non-Af Amer) 57.3 BUN/Creatinine Ratio 25.0 H Glucose 249 H POC Glucose (mg/dL) 316 H Calcium 8.0 L Blood Type Antibody Screen Assessment: POD#1 s/p exlap/partial colectomy/SBRsxn. Doing well. NANY. Plan: Cont castro for monitoring u/o until tomorrow. Cont clears. Monitor H/H, may need txfn. Amb/Pulm toilet. Ostomy teaching. Appreciate Dr. Souza's input. D/w pt//dtr.
[2018-07-03] MEDS ORDERED: Insulin LISPRO* 1 UNITS UNIT SUBCUT SCH (12:00)
[2018-07-03] MEDS: D5LR 1000 ML BAG* 1,000 ML IV SCH (18:23)
[2018-07-04] MEDS: Insulin LISPRO* 1 UNITS UNIT SUBCUT SCH ×6 (02:00→22:42)
[2018-07-04 06:10] LABS: ABS Basophils 0 10^3/ul (0-0.2); ABS Eosinophils 0 10^3/ul (0-0.6); ABS Lymphocytes 1.2 10^3/ul (1.0-4.8); ABS Monocytes 0.6 10^3/ul (0-0.8); ABS Neutrophils 10.4 10^3/ul (1.5-7.7); ABS Nucleated RBC 0 10^3/ul; Eosinophil % 0 %; Hematocrit 25 % (36-46); Hemoglobin 7.9 g/dL (14.0-18.0); Lymphocyte % 9.6 %; Mean Corpuscular HGB Conc 31 g/dL (31-36); Mean Corpuscular Hemoglobin 24 pg (27-31); Mean Corpuscular Volume 78 fL (80-94); Mean Platelet Volume 9.5 fL (7.4-10.4); Nucleated Red Blood Cells % 0.1; Platelet Count 204 10^3/uL (150-450); Red Blood Count 3.26 10^6 /uL (4.18-5.48); Red Cell Distribution Width 16 % (10.5-15); White Blood Count 12.2 10^3/uL (3.5-10.8)
[2018-07-04 06:20] LABS: Calcium 7.7 mg/dL (8.6-10.3)
[2018-07-04 06:26] LABS: BUN/Creatinine Ratio 26.7 (8-20); EGFR African American 87.9 (>60); EGFR Non-African American 72.6 (>60)
[2018-07-04] MEDS: Heparin VIAL(*) 5000 UNITS/ML VIAL (FIVE THOUSAND) SUBCUT SCH ×3 (06:35→22:43)
--- NOTE | 2018-07-04 08:10 | PN ---
Subjective - Subjective Reason for Note: Consultation Note History: Internal medicine: He has some abdominal discomfort - he is unable to tell if this is hunger or something else. He has been drinking broth, but is not particularly thirsty. He denies nausea and vomiting. Yesterday he walked around the [place] on 2 occasions and sat out in a chair. He wants his Davis out. He denies chest pain , dyspnea, cough, sputum. I note he is hyperglycemic despite increasing his insulin. 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) Z93.3 Metastatic colon cancer to liver (Acute) C18.9, C78.7 Type 2 diabetes mellitus with hyperglycemia (Acute) E11.65 Diabetic nephropathy (Chronic) Diabetic peripheral neuropathy (Chronic) E11.42 Essential hypertension (Chronic) I10 Hyperlipidemia (Chronic) E78.5 Nephrotic syndrome (Chronic) N04.9 Non-proliferative diabetic retinopathy (Chronic) E11.3299 Stage 3 chronic kidney disease (Chronic) N18.3 Current Medications: Current Medications Dextrose (D50w Syringe 50 Ml*) 12.5 gm IV PUSH .FOR FS < 60 - SS PRN PRN Reason: FS < 60 Heparin Sodium (Porcine) (Heparin Vial(*)) 5,000 units SUBCUT Q8HR [facility] Last Admin: 07/04/18 06:35 Dose: 5,000 units Ropivacaine 300 mg/ Sodium (Chloride) 300 mls @ 0 mls/hr EPIDURAL PER RATE [facility] ; Protocol Last Admin: 07/02/18 19:19 Dose: 8 mls/hr Dextrose/Lactated Ringer's (D5lr 1000 Ml Bag*) 1,000 mls @ 50 mls/hr IV PER RATE [facility] Last Admin: 07/03/18 18:23 Dose: 50 mls/hr Insulin Glargine (Lantus(*)) 15 units SUBCUT Q12H [facility] Last Admin: 07/03/18 20:56 Dose: 15 units Insulin Human Lispro (Humalog*) 0 units SUBCUT Q4HR [facility]; Protocol Last Admin: 07/04/18 06:35 Dose: 10 units Ondansetron HCl (Zofran Inj*) 4 mg IV Q6H PRN PRN Reason: NAUSEA/VOMITING Ondansetron HCl (Zofran Inj*) 4 mg IV Q4H PRN PRN Reason: NAUSEA/VOMITING Home Medications: Home Medications Medication Instructions Recorded Confirmed Type Amlodipine Besylate [Norvasc 5 mg 5 mg PO QAM 11/29/16 07/02/18 History tab] Aspirin [Aspirin 81 MG TAB] 81 mg PO QAM 11/29/16 07/02/18 History Atorvastatin* [Lipitor*] 40 mg PO QAM 11/29/16 07/02/18 History FLUoxetine CAP* [PROzac CAP*] 40 mg PO QAM 11/29/16 07/02/18 History Ferrous Sulfate TAB* 325 mg PO QAM 11/29/16 07/02/18 History metFORMIN* [Glucophage 1000 MG TAB 1,000 mg PO BID 11/29/16 07/02/18 History *] Acetaminophen [Tylenol] 650 mg PO Q6HR PRN 06/06/18 07/01/18 History Liraglutide [Victoza 3-Trevin] 1.8 mg SUBCUT BEDTIME 06/06/18 07/01/18 History glipiZIDE [Glipizide] 10 mg PO BID 06/06/18 07/02/18 History Ondansetron HCl [Zofran 4 MG TAB] 4 mg PO Q4H PRN 07/01/18 07/02/18 History Oseltamivir CAP* [Tamiflu CAP*] 75 mg PO QAM 07/01/18 07/02/18 History Prochlorperazine TAB* [Compazine 10 mg PO Q6H PRN 07/01/18 07/02/18 History Tab*] traMADol TAB* [Ultram*] 50 mg PO Q6HR PRN 07/01/18 07/02/18 History Flagyl 07/02/18 History Neomycin TAB* 07/02/18 History Allergies: Allergies Allergy/AdvReac Type Severity Reaction Status Date / Time exenatide [From [place]] Allergy Intermediate Rash Verified 07/02/18 12:24 Objective - Vital Signs Vital Signs: Vital Signs 07/03/18 07/03/18 07/03/18 08:05 11:28 11:32 Temperature 98.6 F Pulse Rate 66 Respiratory 16 16 16 Rate Blood Pressure 104/28 104/40 (mmHg) O2 Sat by Pulse 100 100 Oximetry 07/03/18 07/03/18 07/03/18 16:19 20:00 20:10 Temperature 97.5 F 96.9 F Pulse Rate 62 60 60 Respiratory 18 18 18 Rate Blood Pressure 114/39 115/47 (mmHg) O2 Sat by Pulse 100 100 Oximetry 07/03/18 07/04/18 07/04/18 23:26 01:20 04:03 Temperature 97.5 F Pulse Rate 64 74 Respiratory 16 16 Rate Blood Pressure 123/45 120/47 (mmHg) O2 Sat by Pulse 100 100 97 Oximetry 07/04/18 07/04/18 07/04/18 04:10 07:34 07:38 Temperature 97.3 F 97.4 F Pulse Rate 63 Respiratory 18 Rate Blood Pressure 130/39 128/54 (mmHg) O2 Sat by Pulse 98 Oximetry - Intake and Output Intake and Output: Intake & Output 07/01/18 07/02/18 07/03/18 07/04/18 11:59 11:59 11:59 11:59 Intake Total 4625 2272 Output Total 750 1575 Balance 3875 697 Weight 188 lb 186 lb Intake: IV Fluids 4525 882 D5W LR 882 ERTAPENEM 1GM 50 LR 1675 lr 2800 Oral 100 1390 Output: [place] 650 1575 Estimated Blood Loss 100 Other: # Bowel Movements 0 ADLs: Meal Record Start: 07/02/18 19: 46 Freq: Status: Active Protocol: Created 07/02/18 19:46 System (Rec: 07/02/18 19:46 System [id number]) Document 07/03/18 19:11 [id number] (Rec: 07/03/18 19:12 [id number]) Intake and Output Start: 07/02/18 19: 46 Freq: DAILY@0600,1400,2200 Status: Active Protocol: Created 07/02/18 19:46 System (Rec: 07/02/18 19:46 System [id number]) Document 07/02/18 22:00 [id number] (Rec: 07/02/18 22:40 [id number] [id number]) Document 07/03/18 05:46 [id number] (Rec: 07/03/18 05:47 [id number] SSU-C10) Document 07/03/18 14:00 [id number] (Rec: 07/03/18 14:34 [id number] U-M15) Document 07/03/18 20:18 [id number] (Rec: 07/03/18 20:18 [id number] U-M18) Document 07/04/18 05:45 [id number] (Rec: 07/04/18 05:46 [id number] [facility]-M18) - Physical Exam General: No Cyanosis, Yes Anemia, No Jaundice, No Clubbing Lungs and Chest: Yes: Chest Expansion Full, Chest Expansion Symetrica, Percussion Note Resonant, Vessicular Breath Sounds. No: Crackles, Wheezes Heart Rate and Rhythm: Irregular Additional Cardiovascular: Yes: Normal Heart Sounds. No: Heart Murmur, Pedal Edema Abdominal Exam: Yes: Soft, Abdominal Tenderness - mild. No: Distention, Guarding, Rebound Tenderness, Bowel Sounds Present - occasional brief bowel sounds, but diminished Results - Results Lab Results: Laboratory Results - last 24 hr 07/02/18 07/02/18 07/03/18 18:28 21:02 11:53 WBC RBC Hgb Hct MCV MCH MCHC RDW Plt Count MPV Neut % (Auto) Lymph % (Auto) [place] % (Auto) Eos % (Auto) Baso % (Auto) Absolute Neuts (auto) Absolute Lymphs (auto) Absolute Monos (auto) Absolute Eos (auto) Absolute Basos (auto) Absolute Nucleated RBC Nucleated RBC % Sodium Potassium Chloride Carbon Dioxide Anion Gap BUN Creatinine Est GFR ( Amer) Est GFR (Non-Af Amer) BUN/Creatinine Ratio Glucose POC Glucose (mg/dL) 316 H 316 H 443 H* Glucose Meter Confirm Calcium 07/03/18 07/03/18 07/03/18 12:17 17:36 22:06 WBC RBC Hgb Hct MCV MCH MCHC RDW Plt Count MPV Neut % (Auto) Lymph % (Auto) [place] % (Auto) Eos % (Auto) Baso % (Auto) Absolute Neuts (auto) Absolute Lymphs (auto) Absolute Monos (auto) Absolute Eos (auto) Absolute Basos (auto) Absolute Nucleated RBC Nucleated RBC % Sodium Potassium Chloride Carbon Dioxide Anion Gap BUN Creatinine Est GFR ( Amer) Est GFR (Non-Af Amer) BUN/Creatinine Ratio Glucose POC Glucose (mg/dL) 220 H 285 H Glucose Meter Confirm 401 H Calcium 07/04/18 07/04/18 05:20 05:20 WBC 12.2 H RBC 3.26 L Hgb 7.9 L Hct 25 L MCV 78 L MCH 24 L MCHC 31 RDW 16 H Plt Count 204 MPV 9.5 Neut % (Auto) 85.3 Lymph % (Auto) 9.6 [place] % (Auto) 4.9 Eos % (Auto) 0 Baso % (Auto) 0.2 Absolute Neuts (auto) 10.4 H Absolute Lymphs (auto) 1.2 Absolute Monos (auto) 0.6 Absolute Eos (auto) 0 Absolute Basos (auto) 0 Absolute Nucleated RBC 0 Nucleated RBC % 0.1 Sodium 134 L Potassium 4.0 Chloride 105 Carbon Dioxide 20 L Anion Gap 9 BUN 27 H Creatinine 1.01 Est GFR ( Amer) 87.9 Est GFR (Non-Af Amer) 72.6 BUN/Creatinine Ratio 26.7 H Glucose 304 H POC Glucose (mg/dL) Glucose Meter Confirm Calcium 7.7 L EKG Report: 92 sinus rhythm - MD 152 QTc 510 QRS 40 Multiple, paired VEs Assessment - Problem List Assessment: Patient Problems Anemia (Acute) Cardiac arrhythmia (Acute) Colon cancer (Acute) Colostomy in place (Acute) Metastatic colon cancer to liver (Acute) Type 2 diabetes mellitus with hyperglycemia (Acute) Diabetic nephropathy (Chronic) Diabetic peripheral neuropathy (Chronic) Essential hypertension (Chronic) Hyperlipidemia (Chronic) Nephrotic syndrome (Chronic) Non-proliferative diabetic retinopathy (Chronic) Stage 3 chronic kidney disease (Chronic) Plan: Colon cancer (Acute)Colostomy in place (Acute) Metastatic colon cancer to liver (Acute) Day 2 post operative: he is doing well - walking/sitting out in a chair. He is keeping down broth. He has mild abdominal discomfort and quiet bowel sounds. Type 2 diabetes mellitus with hyperglycemia (Acute) He is insulin resistant and his glucose levels are high. I am giving him 5% dextrose to prevent ketosis. I will increase the glargine insulin substantially. He usually takes liraglutide (Victoza). There is not enough evidence in the literature about the safety of GLP-1 agonist in the inpatient setting*. I will not restart glipizide until he is eating. I will manage him with insulin therapy for now. He had 36 units of lispro insulin yesterday and he remained hyperglycemic. I note that on 2 occasions he was not given insulin despite a high FS. Hence I will add this to the glargine - going from 15 units twice daily to 30 units twice daily. When his IV 5% dextrose is removed and he becomes less insulin resistant, we will cut back on his glargine once more (baseline is 18 units once daily). Anemia (Acute) Per surgery - I note he has nephrotic syndrome and mild chronic anemia -this may slow his recovery from anemia. Cardiac arrhythmia (Acute) I reviewed his EKG - this is irregular due to multiple VEs -this is his baseline. There is no atrial fibrillation. Secondary diagnoses: Diabetic nephropathy (Chronic)/nephrotic syndrome/Stage 3 chronic kidney disease (Chronic) This may slow his healing Diabetic peripheral neuropathy (Chronic) Essential hypertension (Chronic) on target. Hyperlipidemia (Chronic) Non-proliferative diabetic retinopathy (Chronic) I discussed the above with the patient and he agrees with the management plan *Am J [employer]. 2018 Jan 04;75(18):4516-0506. doi: [id number]. Noninsulin medication therapy for hospitalized patients with diabetes mellitus. Petite SE1. Author information Abstract PURPOSE: Published evidence regarding the role of noninsulin antidiabetic therapies in glycemic management of hospitalized patients with diabetes mellitus is reviewed. SUMMARY: The [place] [employer] recommends against the routine use of noninsulin antidiabetic therapies during hospitalization and supports insulin use instead. There are significant risks associated with insulin therapy, including hypoglycemia, and use of alternative therapies may be considered in hospitalized patients. A MEDLINE literature search was conducted to find articles on studies evaluating the use of noninsulin antidiabetic therapies in the inpatient setting; all full-text [place]-language publications presenting observational and randomized clinical trial data on the topic of interest were considered for inclusion in the review, with 9 publications selected for review. The majority of the reviewed research focused on incretin-based therapies, and favorable safety and efficacy outcomes were reported with the use of dipeptidyl peptidase-4 (DPP-4) inhibitors. The available evidence indicates that the use of other noninsulin medications, including glucagon-like peptide-1 receptor agonists and sulfonylureas, to achieve and maintain glycemic control in the inpatient setting may be limited by adverse effects. CONCLUSION: Optimal glycemic control in hospitalized patients with diabetes is necessary to avoid adverse effects. Insulin therapy is currently the primary medication recommended for this patient population. DPP-4 inhibitors have been demonstrated to be safe and effective for use in the inpatient setting in patients with well-controlled diabetes. Further research is needed to help define the role of noninsulin medications in the inpatient setting.
--- NOTE | 2018-07-04 10:00 | PN ---
Progress Note - Progress Note Date of Service: 07/04/18 SOAP: Subjective: He feels more pain today and CEI was not working earlier. No N/V. No ostomy fct. Objective: Vital Signs Temp 97.4 F 07/04/18 07:34 Pulse 63 07/04/18 07:34 Resp 18 07/04/18 07:34 BP 128/54 07/04/18 07:38 Pulse Ox 98 07/04/18 07:34 Gen: sitting in chair; NAD Abd: distended with no BS; soft; dressings intact. Intake & Output 07/03/18 07/04/18 07/04/18 18:59 06:59 18:59 Intake Total 1797 1150 Output Total 1575 Balance 1797 -425 Intake: IV Fluids 1557 D5W LR 882 LR 675 Oral 240 1150 Output: [place] 1575 Other: # Bowel Movements 0 Laboratory Results - last 24 hr 07/02/18 07/03/18 07/03/18 18:28 11:53 12:17 WBC RBC Hgb Hct MCV MCH MCHC RDW Plt Count MPV Neut % (Auto) Lymph % (Auto) [place] % (Auto) Eos % (Auto) Baso % (Auto) Absolute Neuts (auto) Absolute Lymphs (auto) Absolute Monos (auto) Absolute Eos (auto) Absolute Basos (auto) Absolute Nucleated RBC Nucleated RBC % Sodium Potassium Chloride Carbon Dioxide Anion Gap BUN Creatinine Est GFR ( Amer) Est GFR (Non-Af Amer) BUN/Creatinine Ratio Glucose POC Glucose (mg/dL) 316 H 443 H* Glucose Meter Confirm 401 H Calcium 07/03/18 07/03/18 07/04/18 17:36 22:06 05:20 WBC 12.2 H RBC 3.26 L Hgb 7.9 L Hct 25 L MCV 78 L MCH 24 L MCHC 31 RDW 16 H Plt Count 204 MPV 9.5 Neut % (Auto) 85.3 Lymph % (Auto) 9.6 [place] % (Auto) 4.9 Eos % (Auto) 0 Baso % (Auto) 0.2 Absolute Neuts (auto) 10.4 H Absolute Lymphs (auto) 1.2 Absolute Monos (auto) 0.6 Absolute Eos (auto) 0 Absolute Basos (auto) 0 Absolute Nucleated RBC 0 Nucleated RBC % 0.1 Sodium Potassium Chloride Carbon Dioxide Anion Gap BUN Creatinine Est GFR ( Amer) Est GFR (Non-Af Amer) BUN/Creatinine Ratio Glucose POC Glucose (mg/dL) 220 H 285 H Glucose Meter Confirm Calcium 07/04/18 05:20 WBC RBC Hgb Hct MCV MCH MCHC RDW Plt Count MPV Neut % (Auto) Lymph % (Auto) [place] % (Auto) Eos % (Auto) Baso % (Auto) Absolute Neuts (auto) Absolute Lymphs (auto) Absolute Monos (auto) Absolute Eos (auto) Absolute Basos (auto) Absolute Nucleated RBC Nucleated RBC % Sodium 134 L Potassium 4.0 Chloride 105 Carbon Dioxide 20 L Anion Gap 9 BUN 27 H Creatinine 1.01 Est GFR ( Amer) 87.9 Est GFR (Non-Af Amer) 72.6 BUN/Creatinine Ratio 26.7 H Glucose 304 H POC Glucose (mg/dL) Glucose Meter Confirm Calcium 7.7 L Assessment: POD#2 s/p exlap/SBRsxn/colectomy/colostomy. Stable. Has postop ileus. Plan: D/C CEI and castro. Dilaudid prn. Limit diet to clears. Ostomy teaching.
[2018-07-04] MEDS ORDERED: HYDROmorphone INJ1* 1 MG/ML SYRINGE ONE (10:08)
[2018-07-04] MEDS: Ropivacaine* 300 MG in NS 0.9% 250 ML* 240 ML EPIDURAL SCH (10:12)
[2018-07-04] MEDS: Insulin GLARGINE(*) 1 UNITS UNIT SUBCUT SCH ×2 (10:14→20:54)
--- NOTE | 2018-07-04 11:11 | PN ---
Progress Note - Progress Note Date of Service: 07/04/18 SOAP: Subjective: [POD #2 s/p partial small bowel and sigmoid resection with ostomy formation. He reports he is doing ok after surgery. Some trouble with pain, but now improved. Up ambulating this am. Post op course c/b ileus, he doesn't believe he's had any gas. No nausea or vomiting.] Objective: [ Vital Signs: Temp Pulse Resp BP Pulse Ox 97.4 F 63 16 128/54 98 07/04/18 07:34 07/04/18 07:34 07/04/18 10:16 07/04/18 07:38 07/04/18 07:34 Dextrose (D50w Syringe 50 Ml*) 12.5 gm IV PUSH .FOR FS < 60 - SS PRN PRN Reason: FS < 60 Heparin Sodium (Porcine) (Heparin Vial(*)) 5,000 units SUBCUT Q8HR [facility] Last Admin: 07/04/18 06:35 Dose: 5,000 units Hydromorphone HCl (Dilaudid Inj1s*) 0.5 mg IV SLOW PU Q4H PRN PRN Reason: PAIN Ropivacaine 300 mg/ Sodium (Chloride) 300 mls @ 0 mls/hr EPIDURAL PER RATE [facility] ; Protocol Last Admin: 07/04/18 10:12 Dose: 8 mls/hr Dextrose/Lactated Ringer's (D5lr 1000 Ml Bag*) 1,000 mls @ 50 mls/hr IV PER RATE [facility] Last Admin: 07/03/18 18:23 Dose: 50 mls/hr Insulin Glargine (Lantus(*)) 30 units SUBCUT Q12H [facility] Last Admin: 07/04/18 10:14 Dose: 30 unit Insulin Human Lispro (Humalog*) 0 units SUBCUT Q4HR [facility]; Protocol Last Admin: 07/04/18 10:15 Dose: 10 units Ondansetron HCl (Zofran Inj*) 4 mg IV Q6H PRN PRN Reason: NAUSEA/VOMITING Ondansetron HCl (Zofran Inj*) 4 mg IV Q4H PRN PRN Reason: NAUSEA/VOMITING Laboratory Results - last 24 hr 07/02/18 07/03/18 07/03/18 18:28 11:53 12:17 WBC RBC Hgb Hct MCV MCH MCHC RDW Plt Count MPV Neut % (Auto) Lymph % (Auto) [place] % (Auto) Eos % (Auto) Baso % (Auto) Absolute Neuts (auto) Absolute Lymphs (auto) Absolute Monos (auto) Absolute Eos (auto) Absolute Basos (auto) Absolute Nucleated RBC Nucleated RBC % Sodium Potassium Chloride Carbon Dioxide Anion Gap BUN Creatinine Est GFR ( Amer) Est GFR (Non-Af Amer) BUN/Creatinine Ratio Glucose POC Glucose (mg/dL) 316 H 443 H* Glucose Meter Confirm 401 H Calcium 07/03/18 07/03/18 07/04/18 17:36 22:06 05:20 WBC 12.2 H RBC 3.26 L Hgb 7.9 L Hct 25 L MCV 78 L MCH 24 L MCHC 31 RDW 16 H Plt Count 204 MPV 9.5 Neut % (Auto) 85.3 Lymph % (Auto) 9.6 [place] % (Auto) 4.9 Eos % (Auto) 0 Baso % (Auto) 0.2 Absolute Neuts (auto) 10.4 H Absolute Lymphs (auto) 1.2 Absolute Monos (auto) 0.6 Absolute Eos (auto) 0 Absolute Basos (auto) 0 Absolute Nucleated RBC 0 Nucleated RBC % 0.1 Sodium Potassium Chloride Carbon Dioxide Anion Gap BUN Creatinine Est GFR ( Amer) Est GFR (Non-Af Amer) BUN/Creatinine Ratio Glucose POC Glucose (mg/dL) 220 H 285 H Glucose Meter Confirm Calcium 07/04/18 07/04/18 05:20 09:55 WBC RBC Hgb Hct MCV MCH MCHC RDW Plt Count MPV Neut % (Auto) Lymph % (Auto) [place] % (Auto) Eos % (Auto) Baso % (Auto) Absolute Neuts (auto) Absolute Lymphs (auto) Absolute Monos (auto) Absolute Eos (auto) Absolute Basos (auto) Absolute Nucleated RBC Nucleated RBC % Sodium 134 L Potassium 4.0 Chloride 105 Carbon Dioxide 20 L Anion Gap 9 BUN 27 H Creatinine 1.01 Est GFR ( Amer) 87.9 Est GFR (Non-Af Amer) 72.6 BUN/Creatinine Ratio 26.7 H Glucose 304 H POC Glucose (mg/dL) 303 H Glucose Meter Confirm Calcium 7.7 L Exam (limited) Gen: Relatively well appearing 72 yo male seen ambulating in the hallway and back to his room with the use of a walker in NAD] Assessment: [72 yo male with relatively new diagnosis of metastatic CRC with near obstructing sigmoid lesion now s/p resection and ostomy formation. Incidental finding of small retroperitoneal/mesenteric abscess that was drained and irrigated during surgery. Now POD#2 with ileus.] Plan: [1. s/p sigmoid/small bowel resection with ostomy formation c/b post-op ileus - POD#2, management per surgery 2. Retroperitoneal abscess, incidental intraoperative finding - reviewed with surgeon, small in size - drained and irrigated during surgery - he received intraoperative ertapenem, further abx will be held at this time unless he develops worsening abdominal pain or fever 3. Metastatic CRC - s/p resection of sigmoid mass - plan to start adjuvant FOLFOX after he has adequately recovered from surgery, likely 3-4 weeks from now 4. DM - management per Dr Souza ]
[2018-07-04] MEDS: D5LR 1000 ML BAG* 1,000 ML IV SCH ×2 (14:08→22:02)
[2018-07-04] MEDS: HYDROmorphone INJ1* 1 MG/ML SYRINGE IV SLOW PU PRN (14:19)
[2018-07-04] MEDS ORDERED: LACTATED RINGERS 1000 ML/HR *Bolus IV SCH (20:35)
[2018-07-05] MEDS: Insulin LISPRO* 1 UNITS UNIT SUBCUT SCH ×5 (02:23→21:46)
[2018-07-05] MEDS: Heparin VIAL(*) 5000 UNITS/ML VIAL (FIVE THOUSAND) SUBCUT SCH ×3 (06:11→21:47)
[2018-07-05] MEDS: D5LR 1000 ML BAG* 1,000 ML IV SCH (09:03)
--- NOTE | 2018-07-05 09:16 | PN ---
Progress Note - Progress Note Date of Service: 07/05/18 SOAP: Subjective: Tolerating clears. Voiding s\ difficulty. Pain controlled. No ostomy o/p. Objective: Vital Signs Temp 98.6 F 07/05/18 07:33 Pulse 50 07/05/18 07:33 Resp 18 07/05/18 07:33 BP 161/50 07/05/18 07:33 Pulse Ox 97 07/05/18 07:33 Gen: sitting in chair; NAD Lungs: CTA B Port incision c/d/i; no erythema. Abd: incision c/d/i; no erythema; ostomy pink with edema and scant serous fluid , no gas in bag. Intake & Output 07/04/18 07/05/18 07/05/18 18:59 06:59 18:59 Intake Total 1236 2201 Output Total 325 890 300 Balance 911 1311 -300 Intake: IV Fluids 996 1301 D5W LR 996 311 LR 990 Oral 240 900 Output: Urine 0 890 300 [place] 325 Path d/w pt. Assessment: S/p Port placemnt; SBRsxn/part sigmoidectomy;end colostomy for metastatic, obstructing colon ca. Plan: Full liquids. HLIV. Await gi fct; ostomy teaching. Pulm toilet/DVT prophylaxis.
[2018-07-05] MEDS: Insulin GLARGINE(*) 1 UNITS UNIT SUBCUT SCH ×2 (10:18→21:47)
[2018-07-05] MEDS ORDERED: Piperacillin/Tazobac ADVAN(*) 3.375 GM in NS 0.9% 100 ML* 100 ML IVPB ONE (13:00)
[2018-07-05] MEDS ORDERED: Zosyn per Pharmacy* NOTE FOLLOW UP SCH (13:00)
[2018-07-05] MEDS ORDERED: Insulin LISPRO* 1 UNITS UNIT SUBCUT SCH (16:30)
[2018-07-05 17:17] LABS: Albumin 2.7 g/dL (3.2-5.2); Albumin/Globulin Ratio 0.8 (1-3); BUN/Creatinine Ratio 16.7 (8-20); C Reactive Protein 74.18 mg/L (<8.01); Calcium 8.4 mg/dL (8.6-10.3); EGFR African American 81.3 (>60); EGFR Non-African American 67.2 (>60); Globulin 3.3 g/dL (2-4); Magnesium 1.6 mg/dL (1.9-2.7); Potassium 3.3 mmol/L (3.5-5.0); Total Bilirubin 0.3 mg/dL (0.2-1.0)
[2018-07-05] MEDS: ZOSYN 3.375 GM Q8H per EXTENDED INFUSION IVPB SCH ×2 (17:58)
[2018-07-06] MEDS: ZOSYN 3.375 GM Q8H per EXTENDED INFUSION IVPB SCH ×6 (02:40→17:43)
[2018-07-06 05:57] LABS: ABS Basophils 0.1 10^3/ul (0-0.2); ABS Eosinophils 0.1 10^3/ul (0-0.6); ABS Lymphocytes 1.9 10^3/ul (1.0-4.8); ABS Monocytes 0.6 10^3/ul (0-0.8); ABS Neutrophils 5.2 10^3/ul (1.5-7.7); ABS Nucleated RBC 0 10^3/ul; Eosinophil % 1.7 %; Hematocrit 26 % (36-46); Hemoglobin 8.5 g/dL (14.0-18.0); Lymphocyte % 23.8 %; Mean Corpuscular HGB Conc 33 g/dL (31-36); Mean Corpuscular Hemoglobin 25 pg (27-31); Mean Corpuscular Volume 76 fL (80-94); Nucleated Red Blood Cells % 0.1; Platelet Count 272 10^3/uL (150-450); Red Blood Count 3.43 10^6 /uL (4.18-5.48); Red Cell Distribution Width 16 % (10.5-15); White Blood Count 7.8 10^3/uL (3.5-10.8)
[2018-07-06 06:12] LABS: BUN/Creatinine Ratio 17.2 (8-20); C Reactive Protein 49.28 mg/L (<8.01); Calcium 8.3 mg/dL (8.6-10.3); EGFR African American 104.4 (>60); EGFR Non-African American 86.3 (>60); Potassium 3.2 mmol/L (3.5-5.0)
[2018-07-06] MEDS: Heparin VIAL(*) 5000 UNITS/ML VIAL (FIVE THOUSAND) SUBCUT SCH ×3 (06:16→21:59)
[2018-07-06] MEDS: Insulin LISPRO* 1 UNITS UNIT SUBCUT SCH ×4 (07:27→22:00)
[2018-07-06] MEDS: HYDROmorphone INJ1* 1 MG/ML SYRINGE IV SLOW PU PRN (07:45)
[2018-07-06] MEDS: Insulin GLARGINE(*) 1 UNITS UNIT SUBCUT SCH ×2 (07:45→21:59)
[2018-07-06] MEDS ORDERED: Magnesium Sulfate 2 GM IV* 2 GM/50 ML BAG IVPB ONE (10:00)
[2018-07-06] MEDS: Potassium Chlor TAB* 20 MEQ TAB.ER PO SCH ×3 (10:25→17:44)
[2018-07-06] MEDS: amLODIPine TAB* 5 MG PO SCH (10:25)
[2018-07-06] MEDS ORDERED: D5LR 1000 ML BAG* 1,000 ML IV SCH (12:08)
--- NOTE | 2018-07-06 12:13 | PN ---
Progress Note - Progress Note Date of Service: 07/06/18 Note: POD#4 s/p colectomy, colostomy Afeb, VS noted Voiding well Still no flatus in bag Kojo full liq, no N/V On Abx for abscess, C&S noted Abd soft, non-tender, incis clean, stoma pink, mild edema Cont iv abx cont clears until increased GI fxn.
[2018-07-06] MEDS: oxyCODONE/Acetamin 5/325 MG* TAB PO PRN ×2 (13:18→17:44)
[2018-07-07] MEDS: ZOSYN 3.375 GM Q8H per EXTENDED INFUSION IVPB SCH ×2 (02:31)
[2018-07-07] MEDS: Heparin VIAL(*) 5000 UNITS/ML VIAL (FIVE THOUSAND) SUBCUT SCH ×3 (05:44→23:03)
[2018-07-07] MEDS: oxyCODONE/Acetamin 5/325 MG* TAB PO PRN ×3 (05:48→23:05)
[2018-07-07 06:20] LABS: Hematocrit 30 % (36-46); Hemoglobin 9.4 g/dL (14.0-18.0); Mean Corpuscular HGB Conc 32 g/dL (31-36); Mean Corpuscular Hemoglobin 25 pg (27-31); Mean Corpuscular Volume 77 fL (80-94); Mean Platelet Volume 8.6 fL (7.4-10.4); Platelet Count 344 10^3/uL (150-450); Red Blood Count 3.85 10^6 /uL (4.18-5.48); Red Cell Distribution Width 16 % (10.5-15); White Blood Count 9.5 10^3/uL (3.5-10.8)
[2018-07-07 07:03] LABS: CO2 Carbon Dioxide 24 mmol/L (22-32); Calcium 8.2 mg/dL (8.6-10.3); Chloride 110 mmol/L (101-111); Magnesium 1.8 mg/dL (1.9-2.7); Sodium 143 mmol/L (135-145)
[2018-07-07 07:05] LABS: Anion Gap 9 mmol/L (2-11)
[2018-07-07 07:09] LABS: Blood Urea Nitrogen 10 mg/dL (6-24); C Reactive Protein 26.74 mg/L (<8.01); EGFR African American 110.2 (>60); EGFR Non-African American 91.1 (>60); Glucose 69 mg/dL (70-100)
[2018-07-07] MEDS: Insulin LISPRO* 1 UNITS UNIT SUBCUT SCH ×4 (08:27→21:20)
[2018-07-07] MEDS: Insulin GLARGINE(*) 1 UNITS UNIT SUBCUT SCH ×3 (09:25→23:03)
[2018-07-07] MEDS: amLODIPine TAB* 5 MG PO SCH (09:27)
--- NOTE | 2018-07-07 10:53 | PN ---
Progress Note - Progress Note Date of Service: 07/07/18 Note: POD#5 s/p partial colectomy/colostomy/SB resxn. Reports good pain control with pills. Noted gas in bag yesterday and he had a leak so the appliance was changed. He hasn't done much work with the ostomy. AVSS Gen: NAD Abd: incision c/d/i; no erythema; ostomy pink and edematous with scant fluid in bag. Laboratory Results - last 24 hr 07/06/18 07/06/18 07/06/18 12:29 16:46 21:38 WBC RBC Hgb Hct MCV MCH MCHC RDW Plt Count MPV Sodium Potassium Chloride Carbon Dioxide Anion Gap BUN Creatinine Est GFR ( Amer) Est GFR (Non-Af Amer) BUN/Creatinine Ratio Glucose POC Glucose (mg/dL) 180 H 148 H 182 H Calcium Magnesium C-Reactive Protein 07/07/18 07/07/18 07/07/18 05:56 05:56 07:17 WBC 9.5 RBC 3.85 L Hgb 9.4 L Hct 30 L MCV 77 L MCH 25 L MCHC 32 RDW 16 H Plt Count 344 MPV 8.6 Sodium 143 Potassium TNP TNP Chloride 110 Carbon Dioxide 24 Anion Gap 9 BUN 10 Creatinine 0.83 Est GFR ( Amer) 110.2 Est GFR (Non-Af Amer) 91.1 BUN/Creatinine Ratio 12.0 Glucose 69 L POC Glucose (mg/dL) Calcium 8.2 L Magnesium 1.8 L C-Reactive Protein 26.74 H 07/07/18 07/07/18 08:24 09:37 WBC RBC Hgb Hct MCV MCH MCHC RDW Plt Count MPV Sodium Potassium 3.7 Chloride Carbon Dioxide Anion Gap BUN Creatinine Est GFR ( Amer) Est GFR (Non-Af Amer) BUN/Creatinine Ratio Glucose POC Glucose (mg/dL) 72 Calcium Magnesium C-Reactive Protein Active Medications Generic Name Dose Route Start Last Admin Trade Name Freq PRN Reason Stop Dose Admin Amlodipine Besylate 5 mg 07/06/18 10:00 07/07/18 09:27 Norvasc Tab* PO 5 mg DAILY [facility] Administration Dextrose 12.5 gm 07/02/18 18:42 D50w Syringe 50 Ml* IV PUSH .FOR FS < 60 - SS PRN FS < 60 Heparin Sodium (Porcine) 5,000 units 07/02/18 22:00 07/07/18 05:44 Heparin Vial(*) SUBCUT 5,000 units Q8HR [facility] Administration Hydromorphone HCl 0.5 mg 07/04/18 09:56 07/06/18 07:45 Dilaudid Inj1s* IV SLOW PU 0.5 mg Q4H PRN Administration PAIN Dextrose/Lactated Ringer's 1,000 mls @ 0 mls/hr 07/06/18 12:08 07/06/18 12:24 D5lr 1000 Ml Bag* IV 30 mls/hr PER RATE [facility] Administration KVO Insulin Glargine 15 units 07/07/18 10:00 07/07/18 10:16 Lantus(*) SUBCUT Not Given Q12H [facility] Insulin Human Lispro 0 units 07/05/18 16:30 07/07/18 08:27 Humalog* SUBCUT Not Given ACHS [facility] Protocol Metformin HCl 1,000 mg 07/07/18 17:00 Glucophage* PO 0800,1700 [facility] Ondansetron HCl 4 mg 07/02/18 17:35 Zofran Inj* IV Q6H PRN NAUSEA/VOMITING Ondansetron HCl 4 mg 07/02/18 18:29 Zofran Inj* IV Q4H PRN NAUSEA/VOMITING Oxycodone/Acetaminophen 1 tab 07/06/18 12:14 07/07/18 05:48 Percocet 5/325 Tab* PO 1 tab Q4H PRN Administration PAIN Microbiology 07/02/18 16:13 Anaerobic Culture - Final Misc Source (See Comment) - Other Bacteroides Vulgatus Bacteroides Uniformis Gram Stain - Final Wound Culture - Final Escherichia Coli Streptococcus Anginosus Salmonella Species A/P: POD#5, doing well. I note he was started on Zosyn by Dr. Lowery over the W/E for the +cultures. This was a small abscess that was completely drained and washed out during surgery. He did not have fever or leukocytosis and although he is a diabetic, I do not think he requires further antibiotics. Therefore, I have d/c'd the Zosyn and will observe. He can advance diet. He will work on the ostomy care. Hope to d/c home in 1-2 days.
--- NOTE | 2018-07-07 14:10 | PN ---
Progress Note - Progress Note Date of Service: 07/07/18 Note: S: POD #5 from colostomy w/ sigmoid colon and partial small bowel resection. Patient was advanced to low residue diet and Zosyn was discontinued this morning. He is doing well with pain at incision sites that is controlled with Percocet. Tolerating diet with no nausea or vomiting and reports some gas in bag yesterday which was changed this morning. He is able to move from bed to chair on his own and is using his incentive spirometer. O: Vital Signs - 12 hr Temp Pulse Resp BP Pulse Ox 07/07/18 11:23 42 118/54 07/07/18 08:00 16 07/07/18 07:49 150/60 07/07/18 07:44 97.8 F 50 16 98 07/07/18 05:48 18 07/07/18 04:22 48 07/07/18 03:51 97.5 F 20 166/51 100 3/18: WBC 9.5; RBC, hgb, hct stable. Gen: Sitting in chair comfortably in no distress Heart: RRR, S1 S2, no murmur Lungs: Clear to auscultation bilaterally, full expansion, no increased work of breathing Abd: Incisions clean dry and intact, ostomy pink with scant fluid, no gas in bag. Soft, nontender to palpation MSK: No edema A/P: This is a 72 year old man POD #5 s/p partial small bowel resection for colon cancer with sigmoid colon resection and colostomy who is doing well clinically with stable vital signs and labs. -Continue low residue diet, pain control -Patient to continue learning to manage ostomy -Plan to discharge in 1-2 days Johanna LOPEZ
[2018-07-07] MEDS: metFORMIN* 1,000 MG TAB PO SCH (17:26)
[2018-07-08] MEDS: Heparin VIAL(*) 5000 UNITS/ML VIAL (FIVE THOUSAND) SUBCUT SCH ×3 (05:46→22:41)
[2018-07-08] MEDS: oxyCODONE/Acetamin 5/325 MG* TAB PO PRN ×2 (07:36→17:45)
[2018-07-08] MEDS: Insulin LISPRO* 1 UNITS UNIT SUBCUT SCH ×4 (07:38→23:52)
[2018-07-08] MEDS: amLODIPine TAB* 5 MG PO SCH (09:08)
[2018-07-08] MEDS: metFORMIN* 1,000 MG TAB PO SCH ×2 (09:08→17:45)
[2018-07-08] MEDS: Insulin GLARGINE(*) 1 UNITS UNIT SUBCUT SCH ×2 (11:05→12:13)
--- NOTE | 2018-07-08 11:07 | PN ---
Progress Note - Progress Note Date of Service: 07/08/18 Note: POD#6 s/p ex lap/SBR/partial colectomy/colostomy; port placement AVSS No new c/o. Ostomy functioning and he emptied bag today. Abd: incis c/d/i; no erythema; soft; ostomy pink. A/P: Doing well. Cont diet. Colostomy teaching. Home when able to manage.
[2018-07-09] MEDS: oxyCODONE/Acetamin 5/325 MG* TAB PO PRN ×2 (06:12→12:13)
[2018-07-09] MEDS: Heparin VIAL(*) 5000 UNITS/ML VIAL (FIVE THOUSAND) SUBCUT SCH ×2 (06:13→14:51)
[2018-07-09 07:18] LABS: Hematocrit 26 % (36-46); Hemoglobin 8.5 g/dL (14.0-18.0); Mean Corpuscular HGB Conc 33 g/dL (31-36); Mean Corpuscular Hemoglobin 25 pg (27-31); Mean Corpuscular Volume 77 fL (80-94); Platelet Count 315 10^3/uL (150-450); Red Blood Count 3.34 10^6 /uL (4.18-5.48); Red Cell Distribution Width 17 % (10.5-15); White Blood Count 10.1 10^3/uL (3.5-10.8)
[2018-07-09 07:39] LABS: Anion Gap 6 mmol/L (2-11); BUN/Creatinine Ratio 12.6 (8-20); Blood Urea Nitrogen 11 mg/dL (6-24); CO2 Carbon Dioxide 28 mmol/L (22-32); Calcium 8.4 mg/dL (8.6-10.3); Chloride 109 mmol/L (101-111); EGFR African American 104.4 (>60); EGFR Non-African American 86.3 (>60); Glucose 66 mg/dL (70-100); Magnesium 1.4 mg/dL (1.9-2.7); Potassium 4.1 mmol/L (3.5-5.0); Sodium 143 mmol/L (135-145)
[2018-07-09] MEDS: Insulin LISPRO* 1 UNITS UNIT SUBCUT SCH ×2 (07:52→12:12)
--- NOTE | 2018-07-09 08:01 | PN ---
Subjective - Subjective Reason for Note: Consultation Note History: He is much better and hoping to go home today. His glucose level came down to 69 mg/dl this morning - once again he is insulin sensitive. He is otherwise feeling well and able to cope. Pain management is good. 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) Z93.3 Metastatic colon cancer to liver (Acute) C18.9, C78.7 Type 2 diabetes mellitus with hyperglycemia (Acute) E11.65 Diabetic nephropathy (Chronic) Diabetic peripheral neuropathy (Chronic) E11.42 Essential hypertension (Chronic) I10 Hyperlipidemia (Chronic) E78.5 Nephrotic syndrome (Chronic) N04.9 Non-proliferative diabetic retinopathy (Chronic) E11.3299 Stage 3 chronic kidney disease (Chronic) N18.3 Current Medications: Current Medications Amlodipine Besylate (Norvasc Tab*) 5 mg PO DAILY [facility] Last Admin: 07/08/18 09:08 Dose: 5 mg Dextrose (D50w Syringe 50 Ml*) 12.5 gm IV PUSH .FOR FS < 60 - SS PRN PRN Reason: FS < 60 Heparin Sodium (Porcine) (Heparin Vial(*)) 5,000 units SUBCUT Q8HR [facility] Last Admin: 07/09/18 06:13 Dose: 5,000 units Hydromorphone HCl (Dilaudid Inj1s*) 0.5 mg IV SLOW PU Q4H PRN PRN Reason: PAIN Last Admin: 07/06/18 07:45 Dose: 0.5 mg Insulin Glargine (Lantus(*)) 15 units SUBCUT Q24H [facility] Last Admin: 07/08/18 12:13 Dose: Not Given Insulin Human Lispro (Humalog*) 0 units SUBCUT ACHS [facility]; Protocol Last Admin: 07/09/18 07:52 Dose: Not Given Metformin HCl (Glucophage*) 1,000 mg PO 0800,1700 [facility] Last Admin: 07/08/18 17:45 Dose: 1,000 mg Ondansetron HCl (Zofran Inj*) 4 mg IV Q6H PRN PRN Reason: NAUSEA/VOMITING Ondansetron HCl (Zofran Inj*) 4 mg IV Q4H PRN PRN Reason: NAUSEA/VOMITING Oxycodone/Acetaminophen (Percocet 5/325 Tab*) 1 tab PO Q4H PRN PRN Reason: PAIN Last Admin: 07/09/18 06:12 Dose: 1 tab Home Medications: Home Medications Medication Instructions Recorded Confirmed Type Amlodipine Besylate [Norvasc 5 mg 5 mg PO QAM 11/29/16 07/02/18 History tab] Aspirin [Aspirin 81 MG TAB] 81 mg PO QAM 11/29/16 07/02/18 History Atorvastatin* [Lipitor*] 40 mg PO QAM 11/29/16 07/02/18 History FLUoxetine CAP* [PROzac CAP*] 40 mg PO QAM 11/29/16 07/02/18 History Ferrous Sulfate TAB* 325 mg PO QAM 11/29/16 07/02/18 History metFORMIN* [Glucophage 1000 MG TAB 1,000 mg PO BID 11/29/16 07/02/18 History *] Acetaminophen [Tylenol] 650 mg PO Q6HR PRN 06/06/18 07/01/18 History Liraglutide [Victoza 3-Trevin] 1.8 mg SUBCUT BEDTIME 06/06/18 07/01/18 History glipiZIDE [Glipizide] 10 mg PO BID 06/06/18 07/02/18 History Ondansetron HCl [Zofran 4 MG TAB] 4 mg PO Q4H PRN 07/01/18 07/02/18 History Oseltamivir CAP* [Tamiflu CAP*] 75 mg PO QAM 07/01/18 07/02/18 History Prochlorperazine TAB* [Compazine 10 mg PO Q6H PRN 07/01/18 07/02/18 History Tab*] traMADol TAB* [Ultram*] 50 mg PO Q6HR PRN 07/01/18 07/02/18 History Flagyl 07/02/18 History Neomycin TAB* 07/02/18 History Allergies: Allergies Allergy/AdvReac Type Severity Reaction Status Date / Time exenatide [From [place]] Allergy Intermediate Rash Verified 07/02/18 12:24 Objective - Vital Signs Vital Signs: Vital Signs 07/08/18 07/08/18 07/08/18 11:04 11:40 15:15 Temperature 97.9 F 97.9 F Pulse Rate 50 75 Respiratory 20 17 15 Rate Blood Pressure 143/33 136/41 (mmHg) O2 Sat by Pulse 99 100 Oximetry 07/08/18 07/08/18 07/08/18 17:45 21:00 23:55 Temperature 97.5 F Pulse Rate 53 Respiratory 18 16 16 Rate Blood Pressure 152/40 (mmHg) O2 Sat by Pulse 98 Oximetry 07/09/18 07/09/18 07/09/18 03:42 06:12 07:25 Temperature 97.5 F 97.6 F Pulse Rate 63 49 Respiratory 16 16 17 Rate Blood Pressure 158/53 148/47 (mmHg) O2 Sat by Pulse 98 100 Oximetry 07/09/18 07:52 Temperature Pulse Rate Respiratory 16 Rate Blood Pressure (mmHg) O2 Sat by Pulse Oximetry - Intake and Output Intake and Output: Intake & Output 07/06/18 07/07/18 07/08/18 07/09/18 11:59 11:59 11:59 11:59 Intake Total 1035 1866 1620 2270 Output Total 1900 1785 1150 3220 Balance -865 81 470 -950 Intake: IV Fluids 20 416 ABX - ZOSYN 308 NS (0.9%) 20 108 IVPB 205 ABX - ZOSYN 205 Oral 810 1450 1620 2270 Output: Urine 1900 1775 1150 1945 Colostomy 10 0 1275 Other: Estimated Void Small # Bowel Movements 0 0 1 Estimated Stool Amount Large # Voids 1 0 ADLs: Meal Record Start: 07/02/18 19: 46 Freq: Status: Active Protocol: Created 07/02/18 19:46 System (Rec: 07/02/18 19:46 System SSU-M07) Document 07/03/18 19:11 [id number] (Rec: 07/03/18 19:12 [id number] SSU-L03) Document 07/04/18 10:36 [id number] (Rec: 07/04/18 10:37 [id number] SSU-C06) Document 07/05/18 11:26 [id number] (Rec: 07/05/18 11:27 [id number] SSU-C12) Document 07/06/18 18:39 [id number] (Rec: 07/06/18 18:39 [id number] SSU-M17) Document 07/07/18 09:22 [id number] (Rec: 07/07/18 09:23 [id number] SSU-C04) Document 07/07/18 14:39 [id number] (Rec: 07/07/18 14:40 [id number] SSU-C04) Document 07/08/18 10:00 [id number] (Rec: 07/08/18 10:41 [id number] SSU-C03) Document 07/08/18 13:49 [id number] (Rec: 07/08/18 13:50 [id number] SSU-C03) Document 07/08/18 19:14 [id number] (Rec: 07/08/18 19:15 [id number] SSU-L03) Intake and Output Start: 07/02/18 19: 46 Freq: DAILY@0600,1400,2200 Status: Active Protocol: Created 07/02/18 19:46 System (Rec: 07/02/18 19:46 System SSU-M07) Document 07/02/18 22:00 [id number] (Rec: 07/02/18 22:40 [id number] SSU-M14) Document 07/03/18 05:46 [id number] (Rec: 07/03/18 05:47 [id number] SSU-C10) Document 07/03/18 14:00 [id number] (Rec: 07/03/18 14:34 [id number] SSU-M15) Document 07/03/18 20:18 [id number] (Rec: 07/03/18 20:18 [id number] SSU-M18) Document 07/04/18 05:45 [id number] (Rec: 07/04/18 05:46 [id number] SSU-M18) Document 07/04/18 14:02 [id number] (Rec: 07/04/18 14:02 GAR1446 SSU-C06) Document 07/04/18 20:00 RAQ2994 (Rec: 07/04/18 20:27 OSH7838 SSU-L03) Document 07/04/18 23:07 [id number] (Rec: 07/04/18 23:07 [id number] SSU-M07) Document 07/05/18 00:20 XND0583 (Rec: 07/05/18 01:40 VUD1388 SSU-C19) Document 07/05/18 03:45 [id number] (Rec: 07/05/18 04:02 [id number] SSU-M17) Document 07/05/18 05:15 ZBS2162 (Rec: 07/05/18 05:15 ZDX5721 SSU-M17) Document 07/05/18 07:33 [id number] (Rec: 07/05/18 07:34 [id number] SSU-C01) Document 07/05/18 14:14 [id number] (Rec: 07/05/18 14:15 [id number] SSU-C01) Document 07/05/18 22:07 [id number] (Rec: 07/05/18 22:10 [id number] SSU-C05) Document 07/06/18 01:51 OHI1554 (Rec: 07/06/18 01:52 [id number] SSU-C12) Document 07/06/18 02:30 [id number] (Rec: 07/06/18 06:03 [id number] SSU-C12) Document 07/06/18 06:07 [id number] (Rec: 07/06/18 06:07 [id number] SSU-C19) Document 07/06/18 06:23 [id number] (Rec: 07/06/18 06:23 HAZ7166 SSU-M06) Document 07/06/18 07:46 [id number] (Rec: 07/06/18 07:47 [id number] SSU-C03) Document 07/06/18 12:26 YVY4062 (Rec: 07/06/18 12:27 FKQ0815 SSU-C03) Document 07/06/18 14:23 [id number] (Rec: 07/06/18 14:24 [id number] SSU-C03) Document 07/06/18 16:09 [id number] (Rec: 07/06/18 16:10 [id number] SSU-C19) Document 07/06/18 18:38 [id number] (Rec: 07/06/18 18:39 [id number] SSU-M17) Document 07/06/18 21:54 [id number] (Rec: 07/06/18 21:55 [id number] SSU-C01) Document 07/07/18 04:22 [id number] (Rec: 07/07/18 04:23 [id number] SSU-C05) Document 07/07/18 05:52 [id number] (Rec: 07/07/18 05:52 [id number] SSU-M07) Document 07/07/18 11:06 [id number] (Rec: 07/07/18 11:07 [id number] SSU-C04) Document 07/07/18 14:39 [id number] (Rec: 07/07/18 14:40 [id number] SSU-C04) Document 07/07/18 17:43 [id number] (Rec: 07/07/18 17:43 [id number] SSU-C10) Document 07/07/18 22:18 [id number] (Rec: 07/07/18 22:19 FHD2206 SSU-M17) Document 07/08/18 03:54 [id number] (Rec: 07/08/18 03:54 [id number] SSU-M18) Document 07/08/18 06:12 [id number] (Rec: 07/08/18 06:13 HHP0337 SSU-M18) Document 07/08/18 10:41 [id number] (Rec: 07/08/18 10:41 [id number] SSU-C03) Document 07/08/18 13:45 HIU6011 (Rec: 07/08/18 13:49 HDC2188 SSU-C03) Document 07/08/18 15:57 [id number] (Rec: 07/08/18 15:57 [id number] SSU-L03) Document 07/08/18 21:26 [id number] (Rec: 07/08/18 21:31 [id number] SSU-L03) Document 07/09/18 00:33 [id number] (Rec: 07/09/18 00:33 [id number] SSU-M17) Document 07/09/18 03:41 [id number] (Rec: 07/09/18 03:42 [id number] SSU-M17) Document 07/09/18 05:42 [id number] (Rec: 07/09/18 05:42 [id number] SSU-M17) Document 07/09/18 06:25 [id number] (Rec: 07/09/18 07:56 [id number] SSU-C19) Results - Results Lab Results: Laboratory Results - last 24 hr 07/08/18 07/08/18 07/08/18 10:56 17:03 22:13 WBC RBC Hgb Hct MCV MCH MCHC RDW Plt Count MPV Sodium Potassium Chloride Carbon Dioxide Anion Gap BUN Creatinine Est GFR ( Amer) Est GFR (Non-Af Amer) BUN/Creatinine Ratio Glucose POC Glucose (mg/dL) 139 H 169 H 104 H Calcium Magnesium 07/09/18 07/09/18 07:09 07:09 WBC 10.1 RBC 3.34 L Hgb 8.5 L Hct 26 L MCV 77 L MCH 25 L MCHC 33 RDW 17 H Plt Count 315 MPV 8.0 Sodium 143 Potassium 4.1 Chloride 109 Carbon Dioxide 28 Anion Gap 6 BUN 11 Creatinine 0.87 Est GFR ( Amer) 104.4 Est GFR (Non-Af Amer) 86.3 BUN/Creatinine Ratio 12.6 Glucose 66 L POC Glucose (mg/dL) Calcium 8.4 L Magnesium 1.4 L Assessment - Problem List Assessment: Patient Problems Anemia (Acute) Cardiac arrhythmia (Acute) Colon cancer (Acute) Colostomy in place (Acute) Metastatic colon cancer to liver (Acute) Type 2 diabetes mellitus with hyperglycemia (Acute) Diabetic nephropathy (Chronic) Diabetic peripheral neuropathy (Chronic) Essential hypertension (Chronic) Hyperlipidemia (Chronic) Nephrotic syndrome (Chronic) Non-proliferative diabetic retinopathy (Chronic) Stage 3 chronic kidney disease (Chronic) Plan: Type 2 diabetes mellitus with hyperglycemia (Acute) He is more insulin sensitive than usual. I think he can go home on fewer medications than usual. I suggest the followin. Stop Lantus insulin 2. Start glipizide 5 mg twice daily (half tablet) 3. Metformin 1000 mg twice daily 4. Hold liraglutide/victoza I will see him as an outpatient in 2 days Anemia (Acute) This is not recovering at this stage, but he is coping. This may relate to his renal disease. However, there may be a component of iron deficiency from his colon cancer. I will consider an iron infusion as an outpatient. He will be getting chemotherapy - this will also hit his bone marrow. Cardiac arrhythmia (Acute) ongoing Colon cancer (Acute)Colostomy in place (Acute)Metastatic colon cancer to liver ( Acute) The next phase is oncological management Secondary diagnoses Diabetic nephropathy (Chronic) Diabetic peripheral neuropathy (Chronic) Essential hypertension (Chronic) Hyperlipidemia (Chronic) Nephrotic syndrome (Chronic) Non-proliferative diabetic retinopathy (Chronic) Stage 3 chronic kidney disease (Chronic) I discussed the above with the patient and he agrees with the management plan.
[2018-07-09] MEDS: metFORMIN* 1,000 MG TAB PO SCH (08:18)
[2018-07-09] MEDS: amLODIPine TAB* 5 MG PO SCH (08:18)
[2018-07-09 08:20] LABS: % Iron Saturation 21 % (15-55); Iron 51 ug/dL (50-212); Total Iron Binding Capacity 238 mcg/dL (250-450); Transferrin 170 mg/dL (203-362)
[2018-07-09 08:40] LABS: Ferritin 51.2 ng/mL (24-336)
[2018-07-09 11:45] VITALS: BP 131/42
[2018-07-09] MEDS: Insulin GLARGINE(*) 1 UNITS UNIT SUBCUT SCH (12:12)
== END 2018-07-09 15:28 | disposition home health service (06) | DRG 329 ==
LOC: OR 11:59 → SSU 19:16
PROVIDERS: ADMIT Surgery; ATTEND Surgery
PROC: 0D1N0Z4 Bypass Sigmoid Colon to Cutaneous, Open Approach (ICD-10-PCS; 2018-07-02)
PROC: 0JH63WZ Insertion of Totally Implantable Vascular Access Device into Chest Subcutaneous Tissue and Fascia, Percutaneous Approach (ICD-10-PCS; 2018-07-02)
PROC: 02HV33Z Insertion of Infusion Device into Superior Vena Cava, Percutaneous Approach (ICD-10-PCS; 2018-07-02)
PROC: B518ZZA Fluoroscopy of Superior Vena Cava, Guidance (ICD-10-PCS; 2018-07-02)
PROC: 0DBE0ZZ Excision of Large Intestine, Open Approach (ICD-10-PCS; principal; 2018-07-02 13:30)
PROC: 0DB80ZZ Excision of Small Intestine, Open Approach (ICD-10-PCS; 2018-07-02 13:30)
DX: C18.7 Malignant neoplasm of sigmoid colon (principal); K65.1 Peritoneal abscess; C78.7 Secondary malignant neoplasm of liver and intrahepatic bile duct; K56.7 Ileus, unspecified; K59.00 Constipation, unspecified; I10 Essential (primary) hypertension; R63.4 Abnormal weight loss; E87.6 Hypokalemia; E83.42 Hypomagnesemia; E11.21 Type 2 diabetes mellitus with diabetic nephropathy; E11.3299 Type 2 diabetes mellitus with mild nonproliferative diabetic retinopathy without macular edema, unspecified eye; E11.65 Type 2 diabetes mellitus with hyperglycemia; E78.5 Hyperlipidemia, unspecified; E11.22 Type 2 diabetes mellitus with diabetic chronic kidney disease; N18.3 Chronic kidney disease, stage 3 (moderate); D50.9 Iron deficiency anemia, unspecified; I49.9 Cardiac arrhythmia, unspecified; Z98.42 Cataract extraction status, left eye; Z98.41 Cataract extraction status, right eye; Z88.8 Allergy status to other drugs, medicaments and biological substances; Z82.49 Family history of ischemic heart disease and other diseases of the circulatory system; Z83.3 Family history of diabetes mellitus; Z68.27 Body mass index [BMI] 27.0-27.9, adult
CPT/HCPCS: 36415; 71045; 76000; 80048; 80053; 82728; 82947; 83540; 83550; 83735; 85025; 85027; 85610; 86140; 86850; 86900; 86901; 87070; 87073; 87076; 87077; 87186; 87205; 88309; 93005; 99232; A9270-GY; C1776; C1788; J0330; J1100; J1170; J1240; J1335; J1642; J1644; J2250; J2405; J2543; J2704; J2710; J2795; J3010; J3475

== ENCOUNTER 2021-05-15 16:08 | Inpatient (IN) ==
[2021-05-15 18:02] LABS: ABS Lymphocytes 1.4 10^3/ul (1.0-4.8); ABS Monocytes 1.3 10^3/ul (0-0.8); ABS Neutrophils 13.5 10^3/ul (1.5-7.7); Eosinophil % 0.2 %; Hematocrit 28 % (42-52); Hemoglobin 9.2 g/dL (14.0-18.0); Lymphocyte % 8.5 %; Mean Corpuscular HGB Conc 33 g/dL (31-36); Mean Corpuscular Hemoglobin 27 pg (27-31); Mean Corpuscular Volume 83 fL (80-94); Mean Platelet Volume 9.3 fL (7.4-10.4); Platelet Count 122 10^3/uL (150-450); Red Cell Distribution Width 21 % (10-15); White Blood Count 16.2 10^3/uL (3.5-10.8)
[2021-05-15] MEDS ORDERED: Vancomycin 1,000 MG in NS 0.9% 250 ml 250 ML IVPB ONE (18:03)
[2021-05-15 18:23] LABS: Troponin I 0.04 ng/mL (<0.03)
[2021-05-15 18:24] LABS: ALT 16 U/L (7-52); AST 36 U/L (13-39); Albumin 2.4 g/dL (3.2-5.2); Albumin/Globulin Ratio 0.5 (1-3); Alkaline Phosphatase 601 U/L (35-149); Blood Urea Nitrogen 75 mg/dL (6-24); C Reactive Protein 137.59 mg/L (<8.01); CO2 Carbon Dioxide 22 mmol/L (22-32); Calcium 7.9 mg/dL (8.6-10.3); Chloride 102 mmol/L (101-111); Globulin 4.4 g/dL (2-4); Glucose 223 mg/dL (70-100); Lipase 15 U/L (11.0-82.0); Magnesium 1.9 mg/dL (1.9-2.7); Sodium 133 mmol/L (135-145); Total Protein 6.8 g/dL (6.4-8.9); eGFR CKD-EPI 19.7 (>60)
[2021-05-15 18:26] LABS: Anion Gap 9 mmol/L (2-11); Potassium 5.7 mmol/L (3.5-5.0)
[2021-05-15 18:28] LABS: Activated Partial Thrombo Time 34.2 seconds (26.0-38.0)
[2021-05-15] MEDS ORDERED: cefTRIAXone 2 GM ADDV.VIAL 2 GM in NS 0.9% 100 ml BAG 100 ML IVPB ONE (18:53)
[2021-05-15] MEDS ORDERED: Albumin Human 5% 12.5 GM/250 ML BTL IV ONE (22:17)
[2021-05-15 22:28] LABS: Fibrinogen 342.7 mg/dL (110.8-404.3)
[2021-05-15 22:31] LABS: LDH 696 U/L (140-271)
[2021-05-15] MEDS ORDERED: Lactated Ringers 1000 ml BAG 1,000 ML IV SCH (23:00)
[2021-05-16 03:50] LABS: Blood Urea Nitrogen 75 mg/dL (6-24); CO2 Carbon Dioxide 22 mmol/L (22-32); Calcium 7.9 mg/dL (8.6-10.3); Chloride 104 mmol/L (101-111); Glucose 144 mg/dL (70-100); Magnesium 1.9 mg/dL (1.9-2.7); Sodium 134 mmol/L (135-145); eGFR CKD-EPI 21.3 (>60)
[2021-05-16 04:17] LABS: Anion Gap 8 mmol/L (2-11); Potassium 5.2 mmol/L (3.5-5.0)
[2021-05-16 04:18] LABS: Troponin I 0.04 ng/mL (<0.03)
[2021-05-16] MEDS: Heparin 5000 UNITS/ML 1 mL VIAL SUBCUT SCH ×2 (08:20→21:23)
[2021-05-16] MEDS: Insulin GLARGINE 100 un/ml 10 ml VIAL SUBCUT SCH ×2 (10:54→21:23)
[2021-05-16] MEDS: Morphine ER 30 mg TAB ** extended release PO SCH ×2 (10:55→21:23)
[2021-05-16] MEDS ORDERED: Dextrose 50% Syringe 50 ml 25 GM/50 ML SYRINGE IV PUSH PRN (11:55)
[2021-05-16] MEDS: cefTRIAXone 1 gm/50 mL NS BAG 1 GM/50 ML BAG IVPB SCH (13:33)
[2021-05-16] MEDS ORDERED: Vancomycin per Pharmacy 1 EA NOTE FOLLOW UP SCH (14:00)
[2021-05-16] MEDS ORDERED: Ondansetron 4 mg VIAL 2 MG/ML 2 ml VIAL IV PRN (16:20)
[2021-05-17 08:26] LABS: Calcium 8.1 mg/dL (8.6-10.3)
[2021-05-17] MEDS: Morphine ER 30 mg TAB ** extended release PO SCH ×2 (08:28→20:41)
[2021-05-17] MEDS: Heparin 5000 UNITS/ML 1 mL VIAL SUBCUT SCH ×2 (08:29→20:42)
[2021-05-17 08:30] LABS: Potassium 5.4 mmol/L (3.5-5.0)
[2021-05-17] MEDS: cefTRIAXone 1 gm/50 mL NS BAG 1 GM/50 ML BAG IVPB SCH (12:20)
[2021-05-17] MEDS ORDERED: SODIUM ZIRCONIUM CYCLOSILICATE 10 GM PACKET PO SCH (14:00)
[2021-05-17] MEDS: Nystatin TOP POWDER 15 GM BTL TOPICAL SCH ×2 (17:40→20:42)
[2021-05-17] MEDS: Insulin GLARGINE 100 un/ml 10 ml VIAL SUBCUT SCH (20:42)
[2021-05-18] MEDS ORDERED: Morphine ORAL CONCENTRATE 5 MG/0.25 ML ORAL.SYRIN SL PRN (07:42)
[2021-05-18] MEDS: SODIUM ZIRCONIUM CYCLOSILICATE 5 GM PACKET PO SCH (09:13)
[2021-05-18] MEDS: Morphine ER 30 mg TAB ** extended release PO SCH ×2 (09:14→23:13)
[2021-05-18] MEDS: Heparin 5000 UNITS/ML 1 mL VIAL SUBCUT SCH ×2 (09:14→23:13)
[2021-05-18] MEDS: Nystatin TOP POWDER 15 GM BTL TOPICAL SCH ×3 (09:15→23:15)
[2021-05-18] MEDS: cefTRIAXone 1 gm/50 mL NS BAG 1 GM/50 ML BAG IVPB SCH (14:45)
[2021-05-18] MEDS: Insulin GLARGINE 100 un/ml 10 ml VIAL SUBCUT SCH (23:15)
[2021-05-19] MEDS: Morphine ER 30 mg TAB ** extended release PO SCH (07:55)
[2021-05-19 08:05] VITALS: BP 119/56
[2021-05-19] MEDS: SODIUM ZIRCONIUM CYCLOSILICATE 5 GM PACKET PO SCH (09:11)
[2021-05-19] MEDS ORDERED: cefTRIAXone 1 gm/50 mL NS BAG 1 GM/50 ML BAG IVPB ONE (09:11)
== END 2021-05-19 11:00 | disposition hospice, home (50) | DRG 872 ==
LOC: ED 16:08 → SUATTDRO 21:59 → EDHOLD 21:59 → MED 05-16 00:05 → SSU 05-19 04:10
PROVIDERS: ADMIT Hospitalist; ATTEND Internal Medicine